=== PATIENT | female | born 1950 | race Caucasian/White ===

== ENCOUNTER → 2018-07-18 11:27 | Outpatient (CLI) | payer OTHER, SELFPAY ==
--- NOTE | 2018-07-18 11:40 | DI.CT.S_ITS ---
PROCEDURE: CT PEL WO CON INDICATIONS: Left medial thigh pain rule out hernia/prolapse TECHNIQUE: After the administration of oral contrast, 5 mm thick sections acquired from the iliac crests to the symphysis. 5 mm coronal and sagittal reformats were then performed. For radiation dose reduction, the following was used: automated exposure control, adjustment of mA and/or kV according to patient size. COMPARISON: [facility], , PELVIS WITHOUT CONTRAST, 12/16/2013, 14:08. FINDINGS: Image quality: Excellent. Peritoneum and bowel: Bowel loops demonstrate normal wall thickness and caliber. No free fluid or air. Genitourinary: Bladder wall thickness is normal. The uterus is surgically absent. There is a small left ovarian cyst measuring approximately 1 point for centimeters. Nodes and vessels: No iliac, pelvic, or inguinal adenopathy by size criteria. Iliac vessels demonstrate normal size. Bones: No suspicious bony lesions. Pelvic ring and hip joints appear intact. There is moderate degenerative disc disease within the lower lumbar spine. Miscellaneous: No inguinal hernias. There is a small amount of localized fluid in the left lateral internal fossa. Mild fat stranding extends inferiorly into the left inguinal region where there are few scattered subcentimeter lymph nodes which appear of normal size. No definite femoral hernia. There is apparent prolapse of the rectum and vagina approximately 4 cm inferior to the pubococcygeal line. IMPRESSION: 1. No discrete inguinal or femoral hernia identified. 2. Prolapse of pelvic contents inferior to the pubococcygeal line. Further evaluation may be obtained with a dynamic MRI if clinically indicated. 3. Small amount of fluid and fat stranding within the left lateral inguinal fossa. The finding is nonspecific but new from the prior study and suggestive of an inflammatory or infectious process. Recommend clinical followup and attention on followup studies. Dictated by: Isma Ibarra M.D. on 07/18/2018 at 15:03 Approved by: Isma Ibarra M.D. on 07/18/2018 at 15:27
== END ==
PROVIDERS: PCP Family Medicine Geriatric Medicine; Visit Provider Specialist
DX: M79.652 Pain in left thigh (principal); N81.89 Other female genital prolapse; N83.202 Unspecified ovarian cyst, left side
CPT/HCPCS: 72192

== ENCOUNTER → 2019-07-16 15:26 | Outpatient (CLI) | payer MEDICARE, OTHER, SELFPAY ==
[2019-07-16 15:52] LABS: Bacteria Urine None Seen; RBC Urine None Seen (0-5/HPF)
[2019-07-16 16:27] LABS: Add Manual Diff / Slide Review NO; Basophils Absolute Auto 0 /uL (0-100); Basophils Percent Auto 0.8 % (0-2); Eosinophils Absolute Auto 100 /uL (0-450); Eosinophils Percent Auto 2.4 % (2-4); Hematocrit 37.8 % (36-46); Hemoglobin 13.3 g/dL (12.0-16.0); Lymphocytes Absolute Auto 1500 /uL (1100-4500); Lymphocytes Percent Auto 27.7 % (25-40); Mean Corpuscular HGB Conc 35.2 % (30-36); Mean Corpuscular Hemoglobin 34.2 PG (26-34); Mean Corpuscular Volume 97.1 fL (80-100); Monocytes Absolute Auto 400 /uL (0-900); Monocytes Percent Auto 8.4 % (3-14); Neutrophils Absolute Auto 3200 /uL (1500-7000); Neutrophils Percent Auto 60.7 % (50-75); Platelet Count 232 X10^3/uL (150-400); Red Blood Cell Count 3.89 X10^6/uL (4.0-5.2); Red Cell Distribution Width 13.1 % (11.6-14.8); White Blood Cell Count 5.3 X10^3/uL (4.5-11.0)
[2019-07-16 16:43] LABS: Blood Urea Nitrogen 16 mg/dL (7-17); Calcium 9.1 mg/dL (8.4-10.2); Carbon Dioxide 30 mmol/L (22-32); Chloride 102 mmol/L (98-107); Estimated Glomerular Filt Rate > 60.0 mL/min (>60); Glucose 115 mg/dL (80-110); HEMOLYSIS < 15 (0-50); Potassium 4.1 mmol/L (3.4-5.1); Sodium 138 mmol/L (137-145)
[2019-07-16 16:45] LABS: Appearance Urine UA CLEAR; Bilirubin Urine UA NEGATIVE (NEGATIVE); Color Urine UA YELLOW; Glucose Urine UA NEGATIVE (Negative); Hemoglobin A1C% w Est Avg Glu 5.2 % (4.0-6.0); Ketones Urine UA NEGATIVE (NEGATIVE); Leukocyte Esterase Urine UA NEGATIVE (NEGATIVE); Nitrite Urine UA NEGATIVE (Negative); Occult Blood Urine UA NEGATIVE (Negative); Protein Urine UA NEGATIVE (Negative); Urobilinogen Urine UA 0.2 E.U./dL (0.2)
[2019-07-16 16:51] LABS: Transferrin 217 mg/dL (206-381)
[2019-07-16 16:59] LABS: Culture Indicated Urine Cult Not Indicated; Squamous Epithelial Cell Urine 0-1 /HPF (0-5/HPF); WBC Urine 0-1/HPF (0-5/HPF)
== END ==
PROVIDERS: PCP Family Medicine; Referring Provider Orthopaedic Surgery; Visit Provider Orthopaedic Surgery
DX: Z01.818 Encounter for other preprocedural examination (principal); E61.1 Iron deficiency; N39.0 Urinary tract infection, site not specified; R73.9 Hyperglycemia, unspecified
CPT/HCPCS: 36415; 80048; 81001; 83036; 84466; 85025

== ENCOUNTER 2019-07-26 08:05 | Day surgery (SDC) | payer MEDICARE, OTHER, SELFPAY ==
[2019-07-23 09:48] VITALS: BMI 28.5
[2019-07-26] VITALS (21 sets, daily range): BP systolic 100–121; BP diastolic 61–78; PULSE 80–107; RESP 9–19; TEMP 35.8–37.4; O2SAT 91–100; BMI 28.3
--- NOTE | 2019-07-26 | DI.RAD.S_ITS ---
PROCEDURE: XR KNEE RT 1TO2V INDICATIONS: RIGHT TOTAL KNEE SURGERY TECHNIQUE: 2 view(s) of the knee acquired. COMPARISON: [facility], , KNEE 1-2 VIEWS LEFT, 06/13/2017, 12:48. FINDINGS: Bones: Patient is status post knee joint arthroplasty. Hardware components are in expected positions. Visualized bony structures are intact. Soft tissues: Overlying postoperative changes are noted. IMPRESSION: Right total knee arthroplasty, immediate postoperative examination. Normal alignment established. Dictated by: Gadiel Burton M.D. on 07/26/2019 at 13:51 Approved by: Gadiel Burton M.D. on 07/26/2019 at 13:52
[2019-07-26] MEDS: ACETAMINOPHEN 325 MG TABLET 975 MG PO (08:34)
[2019-07-26] MEDS: CELECOXIB 200 MG CAPSULE PO (08:34)
[2019-07-26] MEDS: PREGABALIN 75 MG CAPSULE PO (08:34)
[2019-07-26] MEDS: LACTATED RINGERS 1,000 ML 42 ML IV (09:01)
[2019-07-26] MEDS: CEFAZOLIN 2 GM/100 ML FROZ.PIGGY IV (10:25)
[2019-07-26] MEDS: TRANEXAMIC ACID 1,000 MG VIAL 1000 MG INJ ×2 (10:50→12:00)
--- NOTE | 2019-07-26 11:21 | SUR.OPER ---
Supine on padded OR bed. Pillow under head, arms secured on padded armboards <90 degree abduction. Safety belt across torso. Non-operative leg secured with tape over blanket over lower leg. Operative leg secured in DeMayo/Brent positioner. Foam padded brace at thigh of operative leg.
[2019-07-26] MEDS: BUPIVACAINE 0.25% W/ EPI 30 ML VIAL 60 ML INJ (11:24)
[2019-07-26] MEDS: BUPIVACAINE LIPOSOME 266 MG/20 ML VIAL INJ (11:24)
[2019-07-26] MEDS: MORPHINE 4 MG/ML INJ INJ (11:25)
--- NOTE | 2019-07-26 12:34 | PM.OP.1 ---
Operative Date/Time/Diagnoses Date of procedure: 07/26/19 Time of procedure: 12:10 Pre-op diagnosis: Right knee osteoarthritis Post-op diagnosis: same Procedure & Clinicians Procedure: Right total knee replacement Same procedure as scheduled: Yes Indications: The patient has had progressively worsening right knee pain with radiographic changes consistent with arthritis. Non-operative management has failed and the patient has requested total knee replacement. The risks, benefits and alternatives to surgery were discussed with the patient prior to proceeding. Risks discussed included, but were not limited to, failure to relieve pain, stiffness, infection, nerve damage, deep venous thrombosis, pulmonary embolism, stroke, coma, heart attack, permanent paralysis and , as well as the potential need for eventual revision of the prosthetic. Surgeon: David Vitale Harness Worker: Dung Haque Click Yes if Unassisted: No Anesthesia Type: General, Spinal and Local Operative Notes Findings: Tricompartmental osteoarthritis with bone exposed in all 3 compartments Closure Type: primary Specimen(s): none sent Prosthetic devices, grafts, tissues, transplants, or devices: Implants used in this procedure were manufactured by the [employer] and included the BCS II Journey total knee replacement with a size 6 right Oxinium femoral component, a size 4 non porous tibial tray with a 9 mm insert and a 29 mm oval Lani II patella. Applied: implant(s) Estimated Blood Loss (mL): 25 Blood products transfused: none Tourniquet time (min): 60 Procedure in detail: The patient was seen in the pre-operative area, where the patient identified the right knee as the operative site and this was marked with my initials. The patient received pre-operative antibiotics, and was taken to the operating room and placed on the operative table in the supine position. After satisfactory anesthesia, a timekeeping supervisor out was performed. The right leg was encircled with a tourniquet about the proximal thigh, and the leg was prepared from the toes to the tourniquet with ChloroPrep in the usual fashion and draped through sterile drapes. The leg was elevated and exsanguinated with Eschmark bandage and the tourniquet inflated to 250 mmHg pressure. The knee was approached through an approximately 18 cm incision centered over the patella and carried into the knee through a medial parapatellar arthrotomy. The anterior osteophytes and soft tissues were removed. The rotational landmarks of Humacao's line and the transepicondylar axis were marked on the femur with electrocautery, and intramedullary guide holes for the femur and tibia were created. The distal femoral cut was made in 6 degrees of valgus using the intramedullary guide at the primary cut setting. The proximal tibial cut was then made using the intramedullary guide, taking 9 mm of bone off the less involved side. The patient has Meyer's cyst decompressed while the tibia was subluxated forward. The extension gap was checked and the rotation of the femoral component confirmed with the gap balancing system. The anterior, posterior and chamfer cuts were then made. The posterior osteophytes and soft tissues were then removed. The posterior capsule was injected with part of a mixture of 60 ml 0.25% Marcaine mixed with 20 ml Exparel and 4 mg of morphine for post-operative pain control. The remainder of this mixture was injected into the capsule and subcutaneous tissues during cement curing. The tibia was prepared with the rotation set by an extra medullary guide. Trial tibial and femoral components were then placed and the intercondylar notch cut through the femoral trial. Range of motion was 0-135 degrees, with good stability throughout the range. The patella was then cut to accommodate the patellar prosthetic. There was no need for a lateral release. The trials were then removed, and the femoral hole plugged with a bone plug. The bone was prepared with pulsatile lavage, and dried with a sponge. Cement was applied and the final prosthetics placed. Excess cement was removed during and after cement curing. After confirming there was no extruded cement posteriorly, the final tibial insert was placed. The knee was copiously irrigated and the tourniquet deflated. Hemostasis was obtained. The capsule was closed with interrupted # 2 polyester suture. The subcutaneous layer was closed with 3-0 Vicryl, and the skin with a running 3-0 V-Lock suture and SteriStrips. An Aquacel Ag dressing was applied and the patient was taken to recovery having tolerated the procedure well. Complications: none Post-operative Condition: stable Disposition: PACU Plan for aftercare: The patient will be maintained on a standard total knee replacement protocol with weight bearing as tolerated. The patient will receive aspirin and sequential compression devices for DVT prophylaxis. The patient will be discharged home when safe for the home environment.
--- NOTE | 2019-07-26 13:18 | SUR.PHASEI ---
Patient A/O. Denies pain/nausea. BARCENAS's x 4.
[2019-07-26] MEDS: OXYCODONE/ACETAMINOPHEN 5/325 TABLET 1 TAB PO (13:22)
[2019-07-26] MEDS: LACTATED RINGERS 1,000 ML 100 ML IV ×2 (14:12→22:50)
--- NOTE | 2019-07-26 14:35 | PC.ADMIT ---
[email or web address] Admission Note: The patient,Henry Nunn,68 y/o, was given written information regarding hospital policies, unit procedures and contact persons. Patient's smoking status: Never smoker. Vital Signs - 8 hr 07/26/19 08:49 07/26/19 12:26 07/26/19 12:30 Temperature 98.4 F 99.4 F Pulse Rate 80 104 H 101 H Respiratory Rate 18 9 L 9 L Blood Pressure 121/77 120/65 110/62 Pulse Oximetry 96 92 91 07/26/19 12:35 07/26/19 12:40 07/26/19 12:45 Temperature 98.4 F Pulse Rate 96 H 94 H 96 H Respiratory Rate 9 L 9 L 11 L Blood Pressure 110/61 113/67 118/71 Pulse Oximetry 98 98 98 07/26/19 12:50 07/26/19 13:05 07/26/19 13:10 Temperature Pulse Rate 95 H 93 H 93 H Respiratory Rate 19 16 12 Blood Pressure 108/69 115/71 114/66 Pulse Oximetry 98 100 95 07/26/19 13:23 Temperature Pulse Rate 92 H Respiratory Rate 12 Blood Pressure 118/64 Pulse Oximetry 100
[2019-07-26] MEDS: ACETAMINOPHEN 325 MG TABLET 650 MG PO ×2 (14:46→21:23)
[2019-07-26] MEDS: OXYCODONE IR 10 MG TABLET PO ×2 (18:10→22:50)
[2019-07-26] MEDS: ASPIRIN EC 81 MG TABLET PO (21:24)
[2019-07-26] MEDS: GABAPENTIN 300 MG CAPSULE PO (21:24)
[2019-07-26] MEDS: DOCUSATE 100 MG CAPSULE PO (21:24)
[2019-07-26] MEDS: NAPROXEN 250 MG TABLET 500 MG PO (21:24)
[2019-07-26] MEDS: DULOXETINE 30 MG CAPSULE PO (21:27)
--- NOTE | 2019-07-26 22:07 | PC.NURSE ---
Assumed care of pt at 1500. Pt resting in bed during bedside hand-off. CMS+, Drsg with Ciro wrap c/d/i. No voids since prior to surgery. Up to BSC with only small amt of urine each time. Bladder scanned with small amt retained. Enc po fluid intake, pt drinking as requested. Steady on feet with 2 PA, now 1 PA w/fww. O2 sats 100% 1L NC. titrated off O2, Pt noted to desat with sleep; 1L NC applied for sleep.
[2019-07-27] VITALS: BP 108/61; PULSE 77; RESP 16; TEMP 36.3; O2SAT 100
[2019-07-27] MEDS: OXYCODONE IR 10 MG TABLET PO ×3 (01:44→09:11)
[2019-07-27] MEDS: hydrOXYzine pamoate 25 MG CAPSULE PO (03:14)
[2019-07-27 04:00] VITALS: BP 105/72; PULSE 81; RESP 18; TEMP 36.6; O2SAT 97
--- NOTE | 2019-07-27 05:48 | PC.NURSE ---
Pt is doing well. Complains of 8/10 pain mostly relieved with Oxy 10mg and a vistaril. Ambulating to bathroom well with FWW and SBA LR@100mL/hr Placed on room air this morning, continuous pulse ox on. B/L SCDs on Became nauseous overnight for about 5min, no emesis. Refused zofran. ate some saltines
[2019-07-27 08:00] VITALS: BP 112/51; PULSE 88; RESP 17; TEMP 36.4; O2SAT 94
[2019-07-27] MEDS: GABAPENTIN 300 MG CAPSULE PO (08:22)
[2019-07-27] MEDS: ACETAMINOPHEN 325 MG TABLET 650 MG PO (08:22)
[2019-07-27] MEDS: ASPIRIN EC 81 MG TABLET PO (08:22)
[2019-07-27] MEDS: DOCUSATE 100 MG CAPSULE PO (08:22)
[2019-07-27] MEDS: NAPROXEN 250 MG TABLET 500 MG PO (08:22)
[2019-07-27 08:41] LABS: Hematocrit 32.4 % (36-46); Hemoglobin 11.6 g/dL (12.0-16.0)
[2019-07-27 09:11] VITALS: O2SAT 98
--- NOTE | 2019-07-27 09:11 | PM.DS.1 ---
History of Present Illness History of Present Illness Date Patient Seen: 07/27/19 Time Patient Seen: 09:11 Chief complaint: 19119 RT TKA *OPB* Narrative: History and physical are contained in the chart in a previously completed note. Please refer to that note for this information. Discharge Providers Provider Discharge Date: 07/27/19 Primary care physician: Scott Mao MD Consults: 07/26/19 13:54 Consult to Discharge Planning Routine Comment: Consult to Physical Therapy Evaluate & Treat Comment: Physician Instructions: postop TKA protocol 07/26/19 14:28 Consult to Pastoral Services Routine Comment: patient request Discharge provider: David Vitale MD Summary Hospital Course Discharge Diagnosis: 1. Right knee osteoarthritis 2. Mild post hemorrhagic anemia Hospital Course: The patient was admitted to the hospital and taken directly to the operating room on July 26, 2019 where she underwent a right total knee replacement for osteoarthritis. She tolerated this procedure well and had made several trips to the bathroom overnight without the assistance. On the morning of postoperative day 1 it is presumed she will be ready for discharge later today after seeing physical therapy. Status at Discharge Cognitive/behavioral status at discharge: oriented Functional status at discharge: uses cane/walker Overall status at discharge: patient is progressing back to baseline Time Spent with Patient Time spent: Less than 30 minutes Exam Vital Signs (past 8 hours): - 07/27/19 04:00 07/27/19 08:00 Temperature 97.9 F 97.5 F L Pulse Rate 81 88 Respiratory Rate 18 17 Blood Pressure 105/72 112/51 L Pulse Oximetry 97 94 Oxygen Delivery Method Nasal Cannula Oxygen Flow Rate 0 Narrative Exam Narrative: Right knee wound is dressed with no drainage on the bandage. Calf is soft. Light touch and motion are intact in the right lower extremity. Objective Labs Result Diagrams: 07/27/19 08:34 Labs: Laboratory Results - last 24 hr 07/27/19 08:34 Hgb 11.6 L Hct 32.4 L Discharge Plan Discharge Plan Patient Disposition: Home Discharge Med Rec/Prescriptions Prescriptions: New acetaminophen 325 mg Tablet 650 mg PO TID 30 Days Qty: 180 RF: 0 aspirin 81 mg Tablet,Delayed Release (Dr/Ec) 81 mg PO BID 42 Days Qty: 84 RF: 0 oxycodone 5 mg Tablet 5 mg PO Q4H PRN (Reason: Pain, Moderate (4-6)) Qty: 40 RF: 0 hydroxyzine pamoate 25 mg Capsule 25 mg PO Q6HR PRN (Reason: Nausea) Qty: 40 RF: 0 Continued naproxen 500 MG tablet 500 mg PO BID Qty: 0 RF: 0 duloxetine 30 MG capsule,delayed release(DR/EC) 30 mg PO SEEINSTR Qty: 0 RF: 0 gabapentin 300 mg capsule 300 mg PO BID RF: 0 oxycodone-acetaminophen 5-325 mg Tablet 1 tab PO Q4-6H PRN (Reason: Pain) RF: 0 Follow up/Referrals: David Vitale MD [Physician] - 2 Weeks Discharge Orders: Discharge (Order); Ordered 07/27/19 Ordered By: David Vitale Provider Discharge Instructions Diet: Diet as Tolerated and Regular Activity: You may bear weight as tolerated on your right leg. Cold/Heat Therapy: You may apply ice to the right knee for 15 minutes of every hour as needed for pain control. Skin/Wound/Dressing Care Report to your healthcare provider any signs of infection, such as:: chills, fever, night sweats, increased pain, unusual drainage and unusual redness Dressing: You may remove your Ciro wrap 3 days after surgery. You may shower normally with the deeper dressing in place. Leave the deeper dressing on until your follow-up. If the central strip of the deep dressing becomes saturated with either water or blood, please call the office to have it changed. Visit Report/Discharge Packet Instructions: DI for Knee Replacement Stand Alone Forms: Surgery Discharge Discharge Data Primary Care Provider: Scott Mao Attending Provider: David Vitale
--- NOTE | 2019-07-27 09:15 | PT.IIE ---
Current Diagnoses Unilateral primary osteoarthritis, right knee (07/26/19) Surgery Performed Operation Date: 07/26/19 10:00 Actual Procedures p Total Knee Arthroplasty(Right) - David Vitale MD Surgical History (Last Updated 07/23/19 @ 09:58 by Aixa Andrews RN) Anesthesia (Resolved) H/O bladder repair surgery (Resolved ~1982) H/O total vaginal hysterectomy (Acute ~1983) History of bilateral tubal ligation (Acute) History of left knee replacement (Resolved 06/19/17) History of nasal surgery (Resolved ~1996) History of shoulder surgery (Resolved ~2005) Hx of appendectomy (Acute) Hx of cholecystectomy (Resolved ~1995) Hx of hernia repair (Resolved ~2009) Hx of hysterectomy (Resolved) Hx of repair of right rotator cuff (Acute) Hx of sinus surgery (Acute) Hx of tonsillectomy (Resolved ~1959) S/P total knee arthroplasty (Resolved) Medical History (Last Updated 07/23/19 @ 09:58 by Aixa Andrews RN) Acne (Inactive) Active Meniere's disease (Chronic) Anemia (Acute) Arthritis (Chronic) Fecal incontinence (Chronic) Fibromyalgia (Chronic ~1995) Hearing loss (Chronic ~1968) Heavy menstrual period (Resolved) Hernia (Chronic) History of urinary incontinence (Chronic) Measles (Resolved ~1955) Meniere's disease (Chronic ~1968) Mumps (Resolved ~1960) Osteoarthritis (Chronic ~1974) Restless leg syndrome (Inactive ~1995) RLS (restless legs syndrome) (Acute) Spinal stenosis (Acute) Spondylosis (Acute ~2013) Tinnitus (Chronic ~1968) Vertigo (Chronic ~1968) Physical Therapy Inpatient Evaluation/Re-Eval M1 PT/OT-IP Prior Functional Status Start: 07/27/19 11:43 Freq: NEEDED Status: Active Protocol: Document 07/27/19 09:15 AB (Rec: 07/27/19 12:15 AB [id number]) Medical Review Prior Functional Status Medical History Reviewed Yes Communication able to make needs known Mobility and Gait pt stated that she is modified independent with all mobilities and ambulation without AD but uses 1 hiking pole for outdoor mobility Social History Household Members spouse Living Arrangements House Number of Floors (Floors) 3 or More Floors Number of Stairs To Enter/Railing? no steps to enter has 7 steps with bilateral rails +7 steps with R rail and L wall to get to 2nd level bedroom Home Environment High Toilet,Walk in Shower Home Equipment Front Wheel Walker,Shower Seat without Backrest,Hand Held Shower Employment Status Retired M2 PT-IP Current Condition Start: 07/27/19 11:43 Freq: NEEDED Status: Active Protocol: Document 07/27/19 09:15 AB (Rec: 07/27/19 12:15 AB [id number]) Physical Therapy Current Condition Current Condition Evaluation Date 07/27/19 Treatment Diagnosis s/p R TKA; difficulty in walking Onset Date 07/26/19 Weight Bearing Status Weight Bearing Status Weight Bear as Tolerated Allowed Weight Bearing Amount (enter % WBAT RLE or #) (%) M3 PT-IP Subjective Start: 07/27/19 11:43 Freq: NEEDED Status: Active Protocol: Document 07/27/19 09:15 AB (Rec: 07/27/19 12:15 AB [id number]) Subjective Physical Therapy Visit Type Type Initial Evaluation Visit Start Time 09:15 Visit Stop Time 11:47 Total Visit Minutes 23 Notes pt seen for split visits: 915 to 926 and 1135 to 1147. checked on pt and PLOF and home set up info acquired but then pt does not want to move and get out of bed and wants to rest for 1 hours. checked on pt again and completed PT eval. Number of FLOOR INSTALLER Visits 0 Therapy Pain Assessment Pain When Pain Assessed At Rest Pain Present Pain Present Pain Reported Location Right Knee Intensity 9 Scale Used Numeric (1 - 10) Pain Management Techniques Timing of Activity with Medications M4 PT-IP Mobility and Gait Start: 07/27/19 11:43 Freq: NEEDED Status: Active Protocol: Document 07/27/19 09:15 AB (Rec: 07/27/19 12:15 AB [id number]) PT-Bed Mobility Assessment Supine to Sit Supine to Sit Independent Sit to Supine Sit to Supine Independent PT-Transfer Assessment Sit to and From Stand Sit to and from Stand Standby Assistance Equipment Transfer Assistive Device Gait Belt,Front Wheeled Walker Orthotic/Prosthetic Devices or Brace: No Comments Mobility Comments pt completed supine to sit SBA, sit to stand SBA and ambulated towards the stairs using FWW SBA. completed stairs and ambulated back to her room using FWW. pt has a FWW but is broken but usable for now. pt stated that they can get one easily where they live. left pt in her room. informed nurse that pt is waiting for d/c. Gait Assessment Gait Gait Assistance Required: Standby Assistance Distance (Feet) 250 Able to Maintain Weight Bearing Status Yes During Gait Assistive Devices Assistive Device Gait Belt,Front Wheeled Walker Orthotic/Prosthetic Devices or Brace: No Gait Deviations General Gait Pattern Antalgic,Decreased Stride Length,Decreased Feet Clearance Factors Limiting Gait Function Factors Limiting Gait Function Decreased Activity Tolerance, Decreased Strength,Pain,Poor Balance,Poor Safety Awareness Comments Gait Comments ambulated 250 ft x 2 using fWW SBA. Stair Climbing Assessment Evaluation Level of Assist On Stairs Standby Assistance Devices Stair Climbing Assistive Devices Left Railing,Right Railing Technique/Endurance Stair Climbing Direction Ascend and Descend Stair Climbing Technique Step to Step Number of Steps Climbed 3 Query Text: Stair Climbing Set # Repetitions (reps) 2 Comments Stair Climbing Comments completed up/down steps using bilateral rails SBA and also completed using just R rail and L side wall SBA. PT-Balance Assessment Sitting Balance and Reactions Static Sitting Balance Ability Normal Dynamic Sitting Balance Ability Normal Standing Balance and Reactions Static Standing Balance Ability Good Dynamic Standing Balance Ability Fair Device Used FWW M5 PT-IP Objective Assessments Start: 07/27/19 11:43 Freq: NEEDED Status: Active Protocol: Document 07/27/19 09:15 AB (Rec: 07/27/19 12:15 AB [id number]) Orientation Orientation/Cognition Level of Alertness Alert Safety Awareness Decreased Safety Awareness Memory Description No Deficits Noted Gross Range of Motion Lower Extremity ROM Assessment Right Impaired Impairments R knee tightness with ROM Strength Lower Extremity Strength Assessment Right Impaired Hip 4-/5 Knee 3+/5 Coordination Assessment Gross Coordination Gross Coordination WNL Sensation Assessment Sensation Gross Sensation WNL Muscle Tone Muscle Tone WNL Yes M6 PT-IP Treatment Start: 07/27/19 11:43 Freq: NEEDED Status: Active Protocol: Document 07/27/19 09:15 AB (Rec: 07/27/19 12:15 AB [id number]) Physical Therapy Treatment Education Education Provided Precautions,Weight Bearing Status,Post-Op Packet,Safety Other Treatments Other Treatment Performed gave pt post-op packet but pt did not want it; stated that she still has her old one and her spouse also has one. M7 PT-IP Assessment and Plan Start: 07/27/19 11:43 Freq: NEEDED Status: Active Protocol: Document 07/27/19 09:15 AB (Rec: 07/27/19 12:15 AB [id number]) PT Summary Assessment and Plan Potential Rehabilitation Potential Good Status of Condition at Evaluation Stable Summary Impairments Pain,ROM,Strength,Balance, Coordination,Bed Mobility, Transfers,Gait,Activity Tolerance Assessment Summary pt requiring SBA with mobility and plans to go home today with spouse to assist her. pt stated that she is scheduled for outpt PT. Goals Transfer Goal Independent,Front Wheeled Walker Gait Goal Independent,Front Wheel Walker Gait Distance 300 Other Goals up/down 13 steps R rail +L wall mod I Days to Meet Goals 3 Frequency of Treatment Frequency Of Treatment Twice a Day Treatment Plan Physical Therapy Treatment Plan Bed Mobility Training,Transfer Training,Gait Training, Therapeutic Exercise,Balance Retraining,Post Op Education, Discharge Planning,Hot or Cold Pack,Neuromuscular Re-ed, Coordination Retraining,Manual Therapy Other Recommendations and Next Treatment ambulation, stair climbing Focus Recommendations To Nursing Amount of Assist Needed Standby Assistance Discharge Recommendations PT Discharge Recommendations Home with Assistance, Outpatient PT Transportation Needs at Discharge Private Vehicle
--- NOTE | 2019-07-27 09:32 | PC.NURSE ---
Patient states that her pain to knee is 9/10. Given 10mg of po Oxycodone and helpful. Incision to R. knee is cdi with aquacel and otoniel wrap intact. Patient needs to be reminded to use her I.S. Patient is on RA and her sats are 95, at one point when SURGERY ATTENDANT got patient up, she states that her sat dropped to 83%. Patients has cold extremities, so this may not be accurate. o sob noted, aware, and states that he is not too concerned as she does not have any lung issues. Upon ausculation breath sounds wnl and clear. Patient is resting now and will be working with physical therapy in about an hour. Her will be here to get her around 1400 or earlier to machine operator picker prescriptions for her pain medication. She will catch the [address] to [facility].
--- NOTE | 2019-07-27 11:25 | CM.IDA ---
Initial DCP Assessment Note: Pt is a 68 yo female, resident of [place]. Patient is now POD#1 from Rt knee surgery w/ Dr Vitale PCP: Scott Mao Payer: YELENA/miranda Reviewed chart, pt discussed in multidisciplinary rounds this morning. Dr Vitale has already initiated DC order this morning, pending progress w/therapy team. Met w/patient, explained role. [place] w/her supportive spouse, who is a retired physician. Patient feels confident about her return home and has had many surgeries so feels she knows what to expect once home and feels prepared w/DME. No needs expected from DC planning team although will remain available in case this changes today. DEIDRE Dougherty
== END 2019-07-27 12:45 | disposition home or self-care (01) ==
LOC: OR 08:07 → AC 13:01
PROVIDERS: PCP Family Medicine; Referring Provider Orthopaedic Surgery; Visit Provider Orthopaedic Surgery
PROC: 0SRC0JZ Replacement of Right Knee Joint with Synthetic Substitute, Open Approach (ICD-10-PCS; CPT 27447; principal; 2019-07-26 10:00)
DX: M17.11 Unilateral primary osteoarthritis, right knee (principal); M79.7 Fibromyalgia
CPT/HCPCS: 27447; 36415; 73560; 85014; 85018; 94762; 97161; C1776; C9290; J0690; J1100; J2250; J2270; J2274; J2405; J2704; J3010

== ENCOUNTER 2019-08-02 10:08 | Day surgery (SDC) | payer MEDICARE, OTHER, SELFPAY ==
[2019-07-26 14:17] VITALS: BMI 28.3
[2019-08-02] VITALS (13 sets, daily range): BP systolic 119–159; BP diastolic 59–89; PULSE 78–96; RESP 9–20; TEMP 36.3–37.1; O2SAT 92–100; BMI 28.0
--- NOTE | 2019-08-02 12:07 | P.HP_ITS ---
History of Present Illness History of Present Illness Date Patient Seen: 08/02/19 Time Patient Seen: 09:45 Date of Onset of Symptoms: 07/28/19 Chief complaint: wash out Narrative: This is an interim history and physical. The patient was seen in the hospital for total joint replacement with a right total knee 1 week ago. She initially did reasonably well and was discharged from the hospital 1 day after surgery. Her noted drainage on her bandage on postoperative day 2 and they were examined in the office postoperative day 3. A compression dressing was applied and she was told to rest the leg and decrease her aspirin use. Her drainage has decreased but not ceased. She returns to the hospital today for exploratory incision and drainage potentially with irrigation of the joint and change of the liner. There have been no additional findings adding to her past medical history from her prior history and physical. She denies fevers and chills. Patient History Medical History Acne (Inactive) Active Meniere's disease (Chronic) Anemia (Acute) Arthritis (Chronic) Fecal incontinence (Chronic) Fibromyalgia (Chronic ~1995) Hearing loss (Chronic ~1968) Heavy menstrual period (Resolved) Hernia (Chronic) History of urinary incontinence (Chronic) Measles (Resolved ~1955) Meniere's disease (Chronic ~1968) Mumps (Resolved ~1960) Osteoarthritis (Chronic ~1974) Restless leg syndrome (Inactive ~1995) RLS (restless legs syndrome) (Acute) Spinal stenosis (Acute) Spondylosis (Acute ~2013) Tinnitus (Chronic ~1968) Vertigo (Chronic ~1968) Surgical History Anesthesia (Resolved) H/O bladder repair surgery (Resolved ~1982) H/O total vaginal hysterectomy (Acute ~1983) History of bilateral tubal ligation (Acute) History of left knee replacement (Resolved 06/19/17) History of nasal surgery (Resolved ~1996) History of shoulder surgery (Resolved ~2005) Hx of appendectomy (Acute) Hx of cholecystectomy (Resolved ~1995) Hx of hernia repair (Resolved ~2009) Hx of hysterectomy (Resolved) Hx of repair of right rotator cuff (Acute) Hx of sinus surgery (Acute) Hx of tonsillectomy (Resolved ~1959) S/P total knee arthroplasty (Resolved) Family & Social History Family History Mother Hypertension Gallstones Diabetes mellitus Father Diabetes mellitus Social History: household members spouse Tobacco & Substance use: Smoking Status Never smoker alcohol intake current alcohol intake frequency 0-2 drinks per day Substance Use Type does not use Meds Home Medications and Allergies Home Medications Medication Instructions Recorded Confirmed Type duloxetine 30 mg PO SEEINSTR #0 06/05/17 07/26/19 History naproxen 500 mg PO BID #0 06/05/17 07/26/19 History gabapentin 300 mg capsule 300 mg PO BID 07/11/18 07/26/19 History oxycodone-acetaminophen 1 tab PO Q4-6H PRN 07/23/19 07/26/19 History acetaminophen 650 mg PO TID 30 Days #180 tab 07/27/19 Rx aspirin 81 mg PO BID 42 Days #84 tab 07/27/19 Rx hydroxyzine pamoate 25 mg PO Q6HR PRN #40 cap 07/27/19 Rx oxycodone 5 mg PO Q4H PRN #40 tab 07/27/19 Rx Allergies Allergy/AdvReac Type Severity Reaction Status Date / Time No Known Drug Allergies Allergy Verified 07/26/19 08:32 Review of Systems Review of Systems ROS: Yes All systems reviewed with the patient and are negative except as otherwise documented Exam Narrative Exam Narrative: The patient is normocephalic atraumatic. Chest is clear to a uscultation. Cardiac exam is regular rate and rhythm. Abdomen is soft nontender with normal bowel bowel sounds no palpable masses. Extremity examination is notable for the right lower extremity. There is some bruising around the knee incision. There is no erythema in the skin. There is a small amount of ongoing sanguinous drainage from the inferior 3rd of the total knee incision. Assessment & Plan Assessment & Plan narrative: The patient has persistent drainage 1 week after total joint replacement. Plan we will open the wound and inspect to make sure this does not go to the joint. We will irrigate and then reclosed. If it does in fact go to the knee itself that joint will also be washed out and this will include an exchange of polyethylene. Patient has agreed to this after discussion the risks benefits and alternatives. Risks discussed included were not limited to failure to relieve the infection if present, stiffness, infection, nerve damage, deep venous thrombosis, pulmonary embolism, stroke, heart attack, permanent paralysis and . COVID-19 COVID-19 status: Negative Result date/Date tested (Pos, Neg/Pending): 08/02/19
[2019-08-02] MEDS: LACTATED RINGERS 1,000 ML 42 ML IV (13:22)
[2019-08-02 13:59] LABS: COVID19 -Nasal RAPID Negative (Negative)
--- NOTE | 2019-08-02 15:29 | SUR.OPER ---
Supine on padded OR bed, head on pillow, arms secured on padded arm boards at <90 degrees abduction, legs uncrossed, safety belt at abdomen, tape over blanket over lower nonoperative leg.
[2019-08-02] MEDS: GABAPENTIN 300 MG CAPSULE PO (15:33)
[2019-08-02] MEDS: ACETAMINOPHEN 325 MG TABLET 975 MG PO (15:33)
[2019-08-02] MEDS: SCOPOLAMINE 1 PATCH TOP (15:37)
[2019-08-02] MEDS: CEFAZOLIN 2 GM/100 ML FROZ.PIGGY IV (16:10)
--- NOTE | 2019-08-02 16:38 | PM.OP.1 ---
Operative Date/Time/Diagnoses Date of procedure: 08/02/19 Time of procedure: 16:38 Pre-op diagnosis: Persistent drainage after right total knee replacement Post-op diagnosis: same Procedure & Clinicians Procedure: Incision and drainage of subcutaneous hematoma, right knee Same procedure as scheduled: Yes Indications: The patient is a 68-year-old woman who 1 week ago underwent a total knee replacement. Unfortunately she has had ongoing sanguinous drainage from the lower edge of her incision since surgery. This has been slowing down but has not completely stopped. After discussion of the risks benefits and alternatives we have elected to return to the operating room for drainage of the hematoma and potentially arthrotomy and washout with liner exchange. The risks benefits and alternatives were discussed with her as documented in my interim history and physical. Surgeon: David Vitale Click Yes if Unassisted: Yes Anesthesia Type: General Operative Notes Findings: Superficial hematoma with no evidence of extension within the joint closure. Closure Type: primary Specimen(s): other (Swab cultures of the hematoma were sent.) Prosthetic devices, grafts, tissues, transplants, or devices: None Estimated Blood Loss (mL): 50 Blood products transfused: none Tourniquet time (min): 0 Procedure in detail: The patient was seen in the preoperative area where she identified her right knee as the operative site. The incision was used as the anna for identifying the surgical site. The patient did not receive preoperative antibiotics. She was taken to the operating room and placed on the operating room table in the supine position where she underwent a general anesthetic. Following the onset of satisfactory general anesthesia, her dressing was removed. A tourniquet was placed around her proximal right thigh although it was never inflated. The pre-existing incision was reopened using a scalpel. There was a large subcutaneous hematoma which was cultured with swabs and then evacuated with suction. At this point antibiotics were started IV with 2 g of Ancef. I carefully explored the closure of the joint capsule. There was no evidence of dehiscence. The subcutaneous hematoma was washed with 3 L of normal saline with pulsatile lavage. Hemostasis was then attained with electrocautery. This subcutaneous tissues were closed with interrupted 3 O Vicryl, the skin was closed with hamzah and Dermabond. An Aquacel Ag dressing was applied, followed by an Ciro wrap from the ankle to the upper thigh.. The patient was then taken to recovery having tolerated the procedure well. Complications: none Post-operative Condition: stable Disposition: PACU Plan for aftercare: The patient will be discharged home today. She will be given a prescription for Keflex 500 mg q.i.d. for 1 week. We will follow the cultures for their results.
[2019-08-02] MEDS: HYDROMORPHONE 2 MG INJ IV (16:46)
[2019-08-02] MEDS: fentaNYL 100 MCG/2 ML INJ IV ×2 (17:11→17:27)
[2019-08-02] MEDS: cephALEXin 250 MG CAPSULE 500 MG PO (17:12)
[2019-08-02] MEDS: hydrOXYzine pamoate 25 MG CAPSULE PO (17:12)
[2019-08-02] MEDS: OXYCODONE IR 5 MG TABLET PO (17:12)
--- NOTE | 2019-08-02 18:22 | SUR.PHASEII ---
To OPD, awake & oriented, tolerating PO well, waiting for spouse to return. IV dc'd, ambulated to the bathroom; stable on feet; voided. Clothing and personal bag returned to patient. States that she is tolerating the pain level well.
--- NOTE | 2019-08-02 18:44 | SUR.PHASEII ---
1835 Stable, Pt ambulating well, Medications/times reviewed with spouse. Pleasant and appreciative.
== END 2019-08-02 18:38 | disposition home or self-care (01) ==
PROVIDERS: PCP Family Medicine; Referring Provider Orthopaedic Surgery; Visit Provider Orthopaedic Surgery
PROC: (CPT 10140; principal; 2019-08-02 16:15)
DX: M96.840 Postprocedural hematoma of a musculoskeletal structure following a musculoskeletal system procedure (principal); Z96.651 Presence of right artificial knee joint; M79.7 Fibromyalgia; Z11.59 Encounter for screening for other viral diseases
CPT/HCPCS: 10140; 87070; 87075; 87205; 87635; J0690; J1100; J1170; J2405; J2704; J3010

== ENCOUNTER 2019-08-19 12:51 | Inpatient (IN) | payer MEDICARE, OTHER, SELFPAY ==
[2019-07-26 14:17] VITALS: BMI 28.3
[2019-08-19] VITALS (19 sets, daily range): BP systolic 98–146; BP diastolic 58–102; PULSE 70–91; RESP 7–19; TEMP 36.1–37.1; O2SAT 92–99; BMI 28.2
[2019-08-19] MEDS: ACETAMINOPHEN 325 MG TABLET 975 MG PO (14:54)
[2019-08-19] MEDS: GABAPENTIN 300 MG CAPSULE PO ×2 (14:54→22:13)
[2019-08-19] MEDS: PREGABALIN 75 MG CAPSULE PO (14:54)
[2019-08-19 15:13] LABS: COVID19 -Nasal RAPID Negative (Negative)
--- NOTE | 2019-08-19 15:15 | PC.NURSE ---
Day shift note: 1400: Patient admitted to room 219 as a direct admission from Dr. BRIGGS office due to increase drainage to right knee. I & D scheduled for this evening. Patient NPO since 1035. IV site placed. Voided 200 ml. Recent fall at home and baseline use of cane, high risk precautions initiated, call light within reach. COVID test performed, neg. Dressing to right knee, was changed during office visit, CDI. Mild edematous and tender to right knee, CMS intact. David at bedside providing supportive care.
--- NOTE | 2019-08-19 16:10 | PM.HP.1 ---
History of Present Illness History of Present Illness Date Patient Seen: 08/19/19 Time Patient Seen: 16:11 Date of Onset of Symptoms: 08/16/19 Chief complaint: DIRECT ADMIT TO IP Narrative: The patient is a 68-year-old woman who underwent a right total knee replacement on July 26, 2019. Postoperatively she had ongoing sanguinous drainage and eventually was returned to the operating room on August 02, 2019 for an incision and drainage of a subcutaneous hematoma. Cultures from this procedure returned negative. There was no evidence of continuity with the joint. She initially did well although she did have some minor continued drainage after this procedure, which continued to be sanguinous. Late on night of last week and into Monday the character of the drainage changed to purulent drainage. She was seen on Monday at her primary care office where they started her on Keflex and took a swab culture of the skin. To date this culture is negative. She contacted my office today and was encouraged to come in. She is readmitted for incision and drainage of the right knee with polyethylene exchange. In addition she will be given a PICC line and 6 weeks of IV antibiotics. Patient History Medical History Acne (Inactive) Active Meniere's disease (Chronic) Acute bilateral low back pain with bilateral sciatica (Acute) Anemia (Acute) Arthritis (Chronic) Fecal incontinence (Chronic) Fibromyalgia (Chronic ~1995) Hearing loss (Chronic ~1968) Heavy menstrual period (Resolved) Hernia (Chronic) History of urinary incontinence (Chronic) Measles (Resolved ~1955) Meniere's disease (Chronic ~1968) Mumps (Resolved ~1960) Osteoarthritis (Chronic ~1974) Restless leg syndrome (Inactive ~1995) RLS (restless legs syndrome) (Acute) Spinal stenosis (Acute) Spondylosis (Acute ~2013) Tinnitus (Chronic ~1968) Vertigo (Chronic ~1968) Surgical History Anesthesia (Resolved) H/O bladder repair surgery (Resolved ~1982) H/O total vaginal hysterectomy (Acute ~1983) History of bilateral tubal ligation (Acute) History of left knee replacement (Resolved 06/19/17) History of nasal surgery (Resolved ~1996) History of shoulder surgery (Resolved ~2005) Hx of appendectomy (Acute) Hx of cholecystectomy (Resolved ~1995) Hx of hernia repair (Resolved ~2009) Hx of hysterectomy (Resolved) Hx of repair of right rotator cuff (Acute) Hx of sinus surgery (Acute) Hx of tonsillectomy (Resolved ~1959) S/P total knee arthroplasty (Resolved) Family & Social History Family History Mother Hypertension Gallstones Diabetes mellitus Father Diabetes mellitus Social History: household members spouse Prior Living Arrangements House Tobacco & Substance use: Smoking Status Never smoker alcohol intake current alcohol intake frequency 0-2 drinks per day Substance Use Type does not use Meds Home Medications and Allergies Home Medications Medication Instructions Recorded Confirmed Type duloxetine 30 mg PO SEEINSTR #0 06/05/17 08/02/19 History naproxen 500 mg PO BID #0 06/05/17 08/02/19 History gabapentin 300 mg capsule 300 mg PO BID 07/11/18 08/02/19 History aspirin 81 mg PO BID 42 Days #84 tab 07/27/19 08/02/19 Rx oxycodone 5 mg PO Q4H PRN #40 tab 07/27/19 08/02/19 Rx acetaminophen 500 mg PO BID PRN 08/19/19 08/19/19 History Allergies Allergy/AdvReac Type Severity Reaction Status Date / Time No Known Drug Allergies Allergy Verified 07/26/19 08:32 Review of Systems Review of Systems Narrative: She reports that she may have an abscessed tooth for which she is expecting an evaluation at the dentist's this coming Monday. She denies fevers and chills. Otherwise review of systems are completely negative except as documented. ROS: Yes All systems reviewed with the patient and are negative except as otherwise documented Exam Vital Signs (past 8 hours): - 08/19/19 13:55 08/19/19 15:50 Temperature 98.5 F 97.9 F Pulse Rate 79 87 Respiratory Rate 18 19 Blood Pressure 137/90 123/77 Pulse Oximetry 99 98 Oxygen Flow Rate 0 Narrative Exam Narrative: Normocephalic atraumatic. Chest clear to auscultation. Cardiac exam regular rate and rhythm. Abdomen soft nontender with normal down will bowel sounds no palpable masses. Right knee wound shows minimal erythema although there is ongoing yellowish drainage from the distal end of the incision consistent with early sinus tract formation. 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 She has been treated over the weekend with oral antibiotics which unfortunately may decrease the yield of cultures taken is surgery. At this point my plan is to try to salvage the prosthetic by doing an extensive I and D with a tibial plastic change. We will place drains in the knee and she will receive a PICC line and will be treated with vancomycin and oral rifampin initially with a switch to more specific antibiotics according to culture results. When culture results are available we will involve Infectious Disease at [facility] in decision making. I have discussed this with the patient and her in detail. The risks benefits and alternatives of surgery were discussed. I made it clear that the alternative available of treating her with oral antibiotics and trying to watch this would almost certainly lead to eventual need for explantation of her prosthetic. Risks discussed included but were not limited to: Possible failure to cure the infection stiffness, nerve damage, deep venous thrombosis, pulmonary embolism, stroke, permanent paralysis, myocardial infarction and . COVID-19 COVID-19 status: Negative Result date/Date tested (Pos, Neg/Pending): 08/19/19 Time Spent With Patient Time with patient: 25 - 35 minutes
[2019-08-19] MEDS: LACTATED RINGERS 1,000 ML 42 ML IV (18:17)
[2019-08-19] MEDS: VANCOMYCIN 1,000 MG/200 ML PIGGYBACK 200 MG IV (19:59)
[2019-08-19] MEDS: TRANEXAMIC ACID 1,000 MG VIAL 2000 MG INJ (20:16)
--- NOTE | 2019-08-19 20:53 | P.OP_ITS ---
Operative Date/Time/Diagnoses Date of procedure: 08/19/19 Time of procedure: 20:53 Pre-op diagnosis: Infected right total knee replacement Post-op diagnosis: same Procedure & Clinicians Procedure: Incision and drainage with polyethylene exchange, right total knee replacement Same procedure as scheduled: Yes Indications: The patient is a 68-year-old woman who has had drainage from her wound after a right total knee replacement. Recently this drainage changed in character from being sanguinous to being purulence. She is return to the ope rating room for repeat I and D and exchange of a polyethylene liner in an attempt to save the prosthetic. Risks benefits and alternatives have been discussed as documented in my history and physical note. Surgeon: David Vitale Click Yes if Unassisted: Yes Anesthesia Type: General Operative Notes Findings: Sinus tract extending to medial proximal tibial plateau. Closure Type: primary Specimen(s): other (Swab and tissue cultures were sent) Prosthetic devices, grafts, tissues, transplants, or devices: A size 3-4 9 mm Journey II BCS tibial insert was removed and replaced with the same size insert. Applied: drain(s) and implant(s) Estimated Blood Loss (mL): 200 Blood products transfused: none Tourniquet time (min): 27 Procedure in detail: The patient was taken to the operating room and placed on the operating room table in a supine position. She underwent a general anesthetic. Her dressing was removed. A tourniquet was placed about her proximal right thigh. A canvas cutter machine-out was performed. The right leg was prepared with ChloraPrep and draped through sterile drapes. The leg was elevated to exsanguinate it. The tourniquet was then inflated to 250 mm of mercury. The patient had not received preoperative antibiotics in an attempt to maximize the yield of cultures. The pre-existing scar was reopened with excision of the sinus tract distally. The sinus tract did track to the joint along the medial proximal tibia. There did not appear to be gross contamination of the joint however. Swab cultures were obtained both from the deep sinus tract and from the joint itself. Likewise tissue cultures were obtained from the anterior scar tissue in the joint and from the area at the base of the sinus tract. Vancomycin IV was then started. The wound was irrigated with 3 L of pulsatile lavage after removing all suture material evident and all necrotic appearing tissue. After this irrigation, dilute Betadine solution was placed in the knee and allowed to sit in the knee for 5 minutes. A 2nd 3 L bag of pulsatile lavage was then used. At this point the tourniquet was released. There were no pulsatile bleeders but there was extensive oozing from all joint surfaces. At this point we administered 1 g of tranexamic acid IV in an attempt to help with hemostasis, the Bovie cautery was also used extensively. A deep drain was placed. The wound was closed with [id number] #[id number] Ethibond in the capsular layer, interrupted 3 O Vicryl in the subcutaneous layer and hamzah for skin. A suction Sveta dressing was applied. The patient was allowed to awaken from anesthesia and transported to the recovery room in good condition having tolerated the procedure well. Complications: none Post-operative Condition: stable Disposition: PACU Plan for aftercare: The patient will be maintained on vancomycin and rifampin initially until cultures are returned. If necessary changes will be made in her antibiotics. She will be maintained in the hospital until appropriate antibiotic choices can be made based on cultures and sensitivity. A PICC line will be placed for 6 weeks of IV antibiotics. We will obtain an ESR and CRP tomorrow morning for baseline comparison. Due to the extensive oozing at all 3 of the surgeries to date on her right knee, no aspirin prophylaxis and no anti- inflammatories will be used for pain control postoperatively. Her DVT prophylaxis will be with mechanical measures only.
[2019-08-19] MEDS: fentaNYL 100 MCG/2 ML INJ IV (20:54)
[2019-08-19] MEDS: HYDROMORPHONE 2 MG INJ IV ×4 (20:56→21:20)
[2019-08-19] MEDS: fentaNYL 100 MCG/2 ML INJ 50 MCG IV (21:08)
--- NOTE | 2019-08-19 22:07 | SUR.PHASEI ---
Pt transferred to acute care floor in stable condition. pt alert and talking to RN during transport. bedside report given to PRINCESS Alvarado upon arrival to room. Transferred care of pt to PRINCESS Alvarado at that time.
[2019-08-19] MEDS: LACTATED RINGERS 1,000 ML 100 ML IV (22:12)
[2019-08-19] MEDS: ACETAMINOPHEN 325 MG TABLET 650 MG PO (22:12)
[2019-08-19] MEDS: DOCUSATE 100 MG CAPSULE PO (22:13)
[2019-08-19] MEDS: rifAMPin 300 MG CAPSULE PO (22:20)
[2019-08-19] MEDS: DULOXETINE 30 MG CAPSULE PO (22:21)
[2019-08-19] MEDS: HYDROMORPHONE 0.5 MG INJ IV (22:21)
--- NOTE | 2019-08-19 22:56 | PC.NURSE ---
Pt arrived on unit at approx 2210, sleepy but A and O x 4. VSS. Desats slightly so on 1 L NC for noc. C/o pain 08/06, given dilaudid IVP and APAP 650mg. Pt voided 400 mLs on BSC, 65 out of hemovac. PICCO green. PICCO has drainage which is marked and has not increased. HV had 65 mg out.
[2019-08-20] VITALS (7 sets, daily range): BP systolic 100–117; BP diastolic 63–73; PULSE 75–88; RESP 16–18; TEMP 36.1–37.2; O2SAT 96–99
[2019-08-20] MEDS: OXYCODONE IR 10 MG TABLET PO (00:21)
--- NOTE | 2019-08-20 04:07 | PC.NURSE ---
Addendum entered by Thais Webb R.N. 08/20/19 05:01: Oxygen now down to 0.5L/min with sat of 96% so will stop oxygen and continue to monitor with pulse ox to see if oxygen needed. Patient states pain is currently 4/10 so medicated with Oxycodone and ice applied. Original Note: Patient seen and assessed at 0038. Is alert and oriented. Breath sounds CTA; oxygen at 2L/min per NC with sat of 98%. HRR. Denies nausea. BT present but denies flatus. [place] been [place] [facility] [place]; denies dysuria. SWETA dressing to right knee with sanguinous drainage within previously drawn markings; hemovac is intact and compressed. Right knee is swollen. CMS is intact. Complained of 8/10 pain and was medicated with Oxycodone. Wearing bilateral calf SCD's. Able to move self in bed and when up was assisted by 1 and using walker. Fall risk score is high (reports fall within past 3 months) and bed alarm is activated.
[2019-08-20] MEDS: OXYCODONE IR 5 MG TABLET PO ×3 (04:59→19:15)
[2019-08-20 05:25] LABS: Hematocrit 29.5 % (36-46); Hemoglobin 10.3 g/dL (12.0-16.0)
[2019-08-20 05:32] LABS: BUN Creatinine Ratio 18.5 (6-22); Blood Urea Nitrogen 12 mg/dL (7-17); Calcium 8.5 mg/dL (8.4-10.2); Carbon Dioxide 26 mmol/L (22-32); Chloride 101 mmol/L (98-107); Estimated Glomerular Filt Rate > 60.0 mL/min (>60); Glucose 161 mg/dL (80-110); HEMOLYSIS < 15 (0-50); Sodium 133 mmol/L (137-145)
[2019-08-20 05:45] LABS: Erythrocyte Sedimentation Rate 38 MM/HR (0-20)
[2019-08-20 05:48] LABS: C-Reactive Protein Quant 0.6 mg/dL (<1.0)
--- NOTE | 2019-08-20 07:45 | PM.PNPO.1 ---
Subjective Subjective Date Patient Seen: 08/20/19 Time Patient Seen: 07:46 Interval history: The patient has questions regarding her surgery but no specific complaints this morning. Exam Vital Signs (past 8 hours): - 08/20/19 00:20 08/20/19 04:57 Temperature 98.1 F 97.8 F Pulse Rate 86 88 Respiratory Rate 18 16 Blood Pressure 105/63 100/64 Pulse Oximetry 98 96 Oxygen Delivery Method Nasal Cannula Oxygen Flow Rate 0 Narrative Exam Narrative: Right knee wound is dressed with moderate drainage on the negative pressure bandage. There is no surrounding erythema. Drain output has been 70 mL. Calf is soft. Light touch and motion are intact. Objective Labs Result Diagrams: 08/20/19 05:05 08/20/19 05:05 Labs: Laboratory Results - last 24 hr 08/19/19 08/20/19 08/20/19 13:53 05:05 05:05 Hgb 10.3 L Hct 29.5 L ESR Sodium 133 L Potassium 5.0 Chloride 101 Carbon Dioxide 26 BUN 12 Creatinine 0.65 Estimated GFR > 60.0 BUN/Creatinine Ratio 18.5 Glucose 161 H Calcium 8.5 C-Reactive Protein COVID-19 PCR Negative 08/20/19 08/20/19 05:05 05:05 Hgb Hct ESR 38 H Sodium Potassium Chloride Carbon Dioxide BUN Creatinine Estimated GFR BUN/Creatinine Ratio Glucose Calcium C-Reactive Protein 0.6 COVID-19 PCR Assessment & Plan Post-op Postoperative Procedures: Procedures Operation Date: 08/19/19 18:30 Actual Procedures Side Surgeon p Incision and Drainage Knee. poly exchange Right David Vitale MD Postoperative day: 1 Postoperative status: doing well Postoperative status narrative: She is doing well postoperative day 1 after I and D of a persistently draining right knee wound. This did appear to extend to the proximal tibia with a sinus tract. Postoperative plan: routine post-op care Postoperative plan narrative: She will be maintained on vancomycin and rifampin until labs return with the bacteria identification and sensitivities. A PICC line will be placed today for long-term IV antibiotics. I anticipate she will be in the hospital for 2-3 additional days until we get the bacteria identified so we can arrange for the appropriate outpatient antibiotics. Time Spent With Patient Time with patient: less than 15 minutes
[2019-08-20] MEDS: ACETAMINOPHEN 325 MG TABLET 650 MG PO ×3 (08:25→21:43)
[2019-08-20] MEDS: DULOXETINE 30 MG CAPSULE PO ×2 (08:25→21:43)
[2019-08-20] MEDS: DOCUSATE 100 MG CAPSULE PO ×2 (08:25→21:43)
[2019-08-20] MEDS: GABAPENTIN 300 MG CAPSULE PO ×2 (08:25→21:43)
[2019-08-20] MEDS: VANCOMYCIN 1,000 MG/200 ML PIGGYBACK 200 MG IV ×2 (08:26→20:15)
[2019-08-20] MEDS: rifAMPin 300 MG CAPSULE PO ×2 (08:27→21:36)
--- NOTE | 2019-08-20 10:23 | DI.RAD.S_ITS ---
PROCEDURE: XR CHEST FOR PICC 1V INDICATIONS: PICC line placement COMPARISON: [facility], CR, CHEST 2 VIEW, 12/16/2011, 12:19. FINDINGS: PICC was placed by the intravenous therapy team from the left side. Fluoroscopic spot film demonstrates the tip of PICC projecting to the area of the lower SVC. IMPRESSION: Tip of PICC projects to the area of lower SVC. Dictated by: Дмитрий Paez M.D. on 08/20/2019 at 10:49 Approved by: Дмитрий Paez M.D. on 08/20/2019 at 10:50
--- NOTE | 2019-08-20 11:54 | PT.IIE ---
Surgery Performed Operation Date: 08/19/19 18:30 Actual Procedures p Incision and Drainage Knee. poly exchange(Right) - David Vitale MD Surgical History (Last Reviewed 08/02/19 @ 12:09 by David Vitale MD) Anesthesia (Resolved) H/O bladder repair surgery (Resolved ~1982) H/O total vaginal hysterectomy (Acute ~1983) History of bilateral tubal ligation (Acute) History of left knee replacement (Resolved 06/19/17) History of nasal surgery (Resolved ~1996) History of shoulder surgery (Resolved ~2005) Hx of appendectomy (Acute) Hx of cholecystectomy (Resolved ~1995) Hx of hernia repair (Resolved ~2009) Hx of hysterectomy (Resolved) Hx of repair of right rotator cuff (Acute) Hx of sinus surgery (Acute) Hx of tonsillectomy (Resolved ~1959) S/P total knee arthroplasty (Resolved) Medical History (Last Reviewed 08/19/19 @ 16:13 by David Vitale MD) Acne (Inactive) Active Meniere's disease (Chronic) Acute bilateral low back pain with bilateral sciatica (Acute) Anemia (Acute) Arthritis (Chronic) Fecal incontinence (Chronic) Fibromyalgia (Chronic ~1995) Hearing loss (Chronic ~1968) Heavy menstrual period (Resolved) Hernia (Chronic) History of urinary incontinence (Chronic) Measles (Resolved ~1955) Meniere's disease (Chronic ~1968) Mumps (Resolved ~1960) Osteoarthritis (Chronic ~1974) Restless leg syndrome (Inactive ~1995) RLS (restless legs syndrome) (Acute) Spinal stenosis (Acute) Spondylosis (Acute ~2013) Tinnitus (Chronic ~1968) Vertigo (Chronic ~1968) Physical Therapy Inpatient Evaluation/Re-Eval M1 PT/OT-IP Prior Functional Status Start: 08/20/19 11:42 Freq: NEEDED Status: Active Protocol: Document 08/20/19 11:43 [facility] (Rec: 08/20/19 11:53 [facility] [id number]) Medical Review Prior Functional Status Medical History Reviewed Yes Diet/Fluid Consistency Regular Communication WNL Mobility and Gait Pt typically likes to bike, kayak, and hike. She was limited prior to the surgery d /t pain though. Pt was using cane/walker prior to this surgery. OVerall has felt her ROM has been imprvoignw ell and pain has been subsiding Social History Household Members spouse Living Arrangements House Number of Floors (Floors) 3 or More Floors Number of Stairs To Enter/Railing? no KRISTY, but does need to get to third floor Home Environment Standard Height Toilet M2 PT-IP Current Condition Start: 08/20/19 11:42 Freq: NEEDED Status: Active Protocol: Document 08/20/19 11:43 [facility] (Rec: 08/20/19 11:53 [facility] [id number]) Physical Therapy Current Condition Current Condition Evaluation Date 08/20/19 Treatment Diagnosis I&D w/polyethylene exchange Precautions Other Precautions Per MD order: standard TKA protocol Weight Bearing Status Weight Bearing Status Weight Bear as Tolerated M3 PT-IP Subjective Start: 08/20/19 11:42 Freq: NEEDED Status: Active Protocol: Document 08/20/19 11:43 [facility] (Rec: 08/20/19 11:53 [facility] [id number]) Subjective Physical Therapy Visit Type Type Initial Evaluation Visit Start Time 11:00 Visit Stop Time 11:42 Total Visit Minutes 42 Number of FABRICATION LEAD Visits 0 Physical Therapy Visit Comments Patient Comments Pt agreeable to work with PT Therapy Pain Assessment Pain When Pain Assessed During Mobility Pain Present Pain Present Pain Reported Location Right Knee Pain Management Techniques Apply Cold,Re-positioning M4 PT-IP Mobility and Gait Start: 08/20/19 11:42 Freq: NEEDED Status: Active Protocol: Document 08/20/19 11:43 [facility] (Rec: 08/20/19 11:53 [facility] [id number]) PT-Bed Mobility Assessment Supine to Sit Supine to Sit Independent Sit to Supine Sit to Supine Independent Scooting Scooting to Edge of Bed Independent Scooting Up and Down in Bed Independent PT-Transfer Assessment Sit to and From Stand Sit to and from Stand Standby Assistance,Use of Upper Extremities Equipment Transfer Assistive Device Gait Belt,Front Wheeled Walker Orthotic/Prosthetic Devices or Brace: No Comments Mobility Comments Pt stood to ambulate SBA and amb about 100ft with FWW. She was able to do step trhough gait and worked on posture while ambulating Gait Assessment Gait Gait Assistance Required: Standby Assistance Distance (Feet) 100 Able to Maintain Weight Bearing Status Yes During Gait Assistive Devices Assistive Device Gait Belt,Front Wheeled Walker Orthotic/Prosthetic Devices or Brace: No Gait Deviations General Gait Pattern Antalgic Factors Limiting Gait Function Factors Limiting Gait Function Decreased Strength,Pain PT-Balance Assessment Sitting Balance and Reactions Static Sitting Balance Ability Normal Dynamic Sitting Balance Ability Normal Standing Balance and Reactions Static Standing Balance Ability Good Dynamic Standing Balance Ability Good Device Used FWW M5 PT-IP Objective Assessments Start: 08/20/19 11:42 Freq: NEEDED Status: Active Protocol: Document 08/20/19 11:43 [facility] (Rec: 08/20/19 11:53 [facility] [id number]) Orientation Orientation/Cognition Level of Alertness Alert Language Function Ability No Deficits Noted Safety Awareness Understands Safety Issues Memory Description No Deficits Noted Strength Lower Extremity Strength Assessment Right Impaired Hip grossly 4-/5 RLE M6 PT-IP Treatment Start: 08/20/19 11:42 Freq: NEEDED Status: Active Protocol: Document 08/20/19 11:43 [facility] (Rec: 08/20/19 11:53 [facility] [id number]) Physical Therapy Treatment Exercises Exercises Ankle Pumps,Quad Sets,Straight Leg Raises Education Education Provided Precautions,Safety Other Treatments Other Treatment Performed Discussed with pt not to overdo and that MD order said for standard knee protocol M7 PT-IP Assessment and Plan Start: 08/20/19 11:42 Freq: NEEDED Status: Active Protocol: Document 08/20/19 11:43 [facility] (Rec: 08/20/19 11:53 [id number] PT Summary Assessment and Plan Potential Rehabilitation Potential Good Status of Condition at Evaluation Evolving Summary Impairments Pain,ROM,Strength,Balance, Transfers,Gait,Activity Tolerance Assessment Summary Pt is a pleasant and motivated 68 year old female s/p 2nd I& D with polyethylene exhange this time. Original R TKA on July 252019 with 1st I&D on . She is very cooperative and hopeful to get back to her active lifestyle. She would benefit from PT to work on ROM, strength, gait mechanics & home set up safety . Goals Transfer Goal Independent Gait Goal Independent Gait Distance 200ft Other Goals up/down 3 stories of stairs with rail SBA Days to Meet Goals 5 Frequency of Treatment Frequency Of Treatment Twice a Day Treatment Plan Physical Therapy Treatment Plan Bed Mobility Training,Transfer Training,Gait Training, Therapeutic Exercise,Balance Retraining,Post Op Education, Discharge Planning,Hot or Cold Pack,Neuromuscular Re-ed Other Recommendations and Next Treatment stairs, inc gait and work on Focus mechanics Recommendations To Nursing Amount of Assist Needed Standby Assistance Discharge Recommendations PT Discharge Recommendations Home with Assistance, Outpatient PT Transportation Needs at Discharge Private Vehicle
--- NOTE | 2019-08-20 11:54 | PT.OIE ---
Past Medical History (Last Reviewed 08/19/19 @ 16:13 by David Vitale MD) Acne (Inactive) Active Meniere's disease (Chronic) Acute bilateral low back pain with bilateral sciatica (Acute) Anemia (Acute) Arthritis (Chronic) Fecal incontinence (Chronic) Fibromyalgia (Chronic ~1995) Hearing loss (Chronic ~1968) Heavy menstrual period (Resolved) Hernia (Chronic) History of urinary incontinence (Chronic) Measles (Resolved ~1955) Meniere's disease (Chronic ~1968) Mumps (Resolved ~1960) Osteoarthritis (Chronic ~1974) Restless leg syndrome (Inactive ~1995) RLS (restless legs syndrome) (Acute) Spinal stenosis (Acute) Spondylosis (Acute ~2013) Tinnitus (Chronic ~1968) Vertigo (Chronic ~1968) Past Surgical History (Last Reviewed 08/02/19 @ 12:09 by David Vitale MD) Anesthesia (Resolved) H/O bladder repair surgery (Resolved ~1982) H/O total vaginal hysterectomy (Acute ~1983) History of bilateral tubal ligation (Acute) History of left knee replacement (Resolved 06/19/17) History of nasal surgery (Resolved ~1996) History of shoulder surgery (Resolved ~2005) Hx of appendectomy (Acute) Hx of cholecystectomy (Resolved ~1995) Hx of hernia repair (Resolved ~2009) Hx of hysterectomy (Resolved) Hx of repair of right rotator cuff (Acute) Hx of sinus surgery (Acute) Hx of tonsillectomy (Resolved ~1959) S/P total knee arthroplasty (Resolved) Visit Care Team Role Provider Type Scott Mao MD Primary Care Provider Non-Staff Specialty: Family Practice Address: [address] [place] [address], [address], [place], [address] Fax: Email: David Vitale MD Admit Provider Physician Attending Provider Referring Provider Specialty: Orthopedic Surgery Address: [address] [place] [address], [id number] Email: [email or web address]
--- NOTE | 2019-08-20 14:48 | PT-IP ANOTE ---
Pt just getting back into bed with assist of STITCHING MACHINE OPERATOR, pt stated she just wasn't feeling well but has been doing her exercises that Leatha showed her this morning. PT will check back with pt in the morning.
--- NOTE | 2019-08-20 14:53 | DIET.PN ---
Dietary Progress Note pt called down to kitchen requesting [facility] [place] per recc from physical therapist on [facility]. Pt appropriate for [facility] [place] so will send bid at [facility] [employer] [facility] until d/c at which time she can purchase by the each or case from [place] [facility] @ [employer].
--- NOTE | 2019-08-20 16:20 | CM.DANOTE ---
Discharge Planning/Care Management DCP: Assessment: case received, EMR reviewed and met with pt and her , a retired physician. Pt admitted yesterday to care of Dr. Vitale for a post op RTKA infection: see template below for details. Payer: Medicare and [employer] Admission status: INPT. Pt was taken to surgery for a polyexchange and I&D with plan for IV antibiotics at d/c. He anticipates that pt will be here for a couple more days so as to identify the correct antibiotics needed. Both note that the [employer] is an excellent plan and pt's spouse Derrick is currently checking into coverage for home infusion services by way of his insurance rep. Explained the home infusion process and payment issues re same as Medicare does not cover home infusion but the [employer] plan may cover much of it. Agreed to sent referral to [employer] to start this process. They are familiar with this company from friends on the [facility] who successfully uses this IV antibiotics. Have now contacted [employer] and faxed initial information plus face sheet and PICC information. Liat states she will get this to the business office so that the insurance process can be started and then will hand case over to their liaison Baljit to follow up. Pt and her are updated and given an IS brochure. P: DCP team to follow to assist with plan for pt to go home with IV antibiotics as per outline by Dr. Vitale. Advanced directive, confirm from FAMILY Start: 08/19/19 14:06 Freq: Q24H Status: Active Protocol: Document 08/19/19 14:06 EM (Rec: 08/19/19 14:31 EM [id number]) Advance Directive, confirm on record Time 14:31 Person contacted David Copy received No Document 08/20/19 14:06 EM (Rec: 08/20/19 14:49 EM [id number]) Advance Directive, confirm on record Time 14:31 Person contacted David Copy received No CM Discharge Assessment Start: 08/20/19 16:12 Freq: Status: Active Protocol: Document 08/20/19 16:12 ITV (Rec: 08/20/19 16:20 ITV [id number]) Discharge Planning Assessment Advance Directives? Yes Advance Directives on File No History Provided By Patient,Family Member,Medical Record Has Patient been admitted in last 30 Yes days? Comment in June for a R TKA and with a d/c to home setting 07/26. Readmitted 08/18 for post op R knee infection Prior Living Arrangements House Household Members spouse Review Status In Process
--- NOTE | 2019-08-20 23:45 | PC.NURSE ---
Report received, care assumed 1530. Pt. A&Ox3. VSS. Pain controlled with PO meds, ice. Pt. ambulatory within room, FWW, standby assist.
[2019-08-21] VITALS (8 sets, daily range): BP systolic 100–120; BP diastolic 60–74; PULSE 67–94; RESP 15–18; TEMP 35.9–36.9; O2SAT 95–98
[2019-08-21] MEDS: OXYCODONE IR 5 MG TABLET PO ×5 (00:11→18:29)
--- NOTE | 2019-08-21 07:04 | PM.PNPO.1 ---
Subjective Subjective Date Patient Seen: 08/21/19 Time Patient Seen: 07:04 Interval history: The patient reports concerns regarding her general medical status. She is depressed about her situation with the infected total knee. Pain has not been a serious issue. Exam Vital Signs (past 8 hours): - 08/21/19 00:30 08/21/19 06:11 Temperature 98.4 F 97.9 F Pulse Rate 94 H 79 Respiratory Rate 16 16 Blood Pressure 110/74 100/69 Pulse Oximetry 95 97 Oxygen Delivery Method Room Air Oxygen Flow Rate 0 Narrative Exam Narrative: The patient is examined while standing at the sink. She is able to walk back and forth using a walker. The dressing his moderately stained with drainage. Cultures are no growth to date. Objective Labs Result Diagrams: 08/20/19 05:05 08/20/19 05:05 Assessment & Plan Post-op Postoperative Procedures: Procedures Operation Date: 08/19/19 18:30 Actual Procedures Side Surgeon p Incision and Drainage Knee. poly exchange Right David Vitale MD Postoperative day: 2 Postoperative status: doing well Postoperative status narrative: The patient is stable postoperative day 2 status post I&D of total knee for sinus tract formation. Cultures are negative to date. Postoperative plan narrative: We will leave the drain in place as it is still putting out 50 mL. We will change the dressing to another suction drainage dressing. We will recheck the cultures tomorrow morning and change antibiotics if appropriate. Time Spent With Patient Time with patient: less than 15 minutes
[2019-08-21] MEDS: DULOXETINE 30 MG CAPSULE PO ×2 (08:03→20:52)
[2019-08-21] MEDS: rifAMPin 300 MG CAPSULE PO ×2 (08:03→20:51)
[2019-08-21] MEDS: DOCUSATE 100 MG CAPSULE PO ×2 (08:04→20:52)
[2019-08-21] MEDS: ACETAMINOPHEN 325 MG TABLET 650 MG PO ×3 (08:04→20:52)
[2019-08-21] MEDS: GABAPENTIN 300 MG CAPSULE PO ×2 (08:04→20:52)
[2019-08-21] MEDS: SODIUM CHLORIDE 0.9% FLUSH 10 ML IV (08:05)
[2019-08-21 08:32] LABS: Vancomycin Trough 9.4 ug/mL (10-20)
[2019-08-21] MEDS: VANCOMYCIN TROUGH 1 REQUEST MISC (08:44)
[2019-08-21] MEDS: VANCOMYCIN 1,500 MG/300 ML FROZ.PIGGY 200 MG IV ×2 (09:45→20:51)
--- NOTE | 2019-08-21 11:01 | PT.IPTN ---
Surgery Performed Operation Date: 08/19/19 18:30 Actual Procedures p Incision and Drainage Knee. poly exchange(Right) - David Vitale MD Physical Therapy Treatment Note M2 PT-IP Current Condition Start: 08/20/19 11:42 Freq: NEEDED Status: Active Protocol: Document 08/20/19 11:43 LR (Rec: 08/20/19 11:53 [facility] [id number]) Physical Therapy Current Condition Current Condition Evaluation Date 08/20/19 Treatment Diagnosis I&D w/polyethylene exchange Precautions Other Precautions Per MD order: standard TKA protocol Weight Bearing Status Weight Bearing Status Weight Bear as Tolerated M3 PT-IP Subjective Start: 08/20/19 11:42 Freq: NEEDED Status: Active Protocol: Document 08/21/19 10:42 SP (Rec: 08/21/19 14:36 SP [email or web address]) Subjective Physical Therapy Visit Type Type Treatment Note Visit Start Time 10:42 Visit Stop Time 11:01 Total Visit Minutes 19 Number of BUSINESS OPERATIONS DIRECTOR Visits 1 Physical Therapy Visit Comments Patient Comments Pt agreeable to PT. Therapy Pain Assessment Pain When Pain Assessed During Mobility Pain Present Pain Present Pain Reported Location Right Knee Intensity 3 Scale Used Numeric (0 - 10) Description Burning,With Movement Pain Behaviors Facial Grimacing Pain Management Techniques Apply Cold,Re-positioning, Timing of Activity with Medications M4 PT-IP Mobility and Gait Start: 08/20/19 11:42 Freq: NEEDED Status: Active Protocol: Document 08/21/19 10:42 SP (Rec: 08/21/19 14:36 SP [id number]) PT-Transfer Assessment Sit to and From Stand Sit to and from Stand Standby Assistance,Use of Upper Extremities Equipment Transfer Assistive Device Gait Belt,Front Wheeled Walker Orthotic/Prosthetic Devices or Brace: No Transfers Transfer Destination Chair Transfer Technique pt ambulated using FWW Transfer Ability Level of Assist Standby Assistance,Use of Upper Extremities Comments Mobility Comments Pt was reclined in chair when arrived. Pt completed post-op exercises approx 100 deg R knee flexion: ankle pumps, heel slides, quad and glut sets, LAQ once sitting. sit <> stand SBA with support for IV pole. Pt ambulated further distance chair to stairs and back approx 275 ft using FWW SBA. Ascend/descend 21 stairs using BHR and R HR to assimulate home 3 flights of stairs step to patterning sBA. Pt improved with knee flexion and heel toe patterning as distance progressed. Pt was reclined in chair when returned, all needs and call light in reach before left. Gait Assessment Gait Gait Assistance Required: Standby Assistance Distance (Feet) 275 Able to Maintain Weight Bearing Status Yes During Gait Assistive Devices Assistive Device Gait Belt,Front Wheeled Walker Orthotic/Prosthetic Devices or Brace: No Gait Deviations General Gait Pattern Antalgic Factors Limiting Gait Function Factors Limiting Gait Function Decreased Strength,Pain Comments Gait Comments see mobility comments Stair Climbing Assessment Evaluation Level of Assist On Stairs Standby Assistance Devices Stair Climbing Assistive Devices Left Railing,Right Railing Technique/Endurance Stair Climbing Direction Ascend and Descend Stair Climbing Technique Step to Step Number of Steps Climbed 3 Stair Climbing Set # Repetitions (reps) 7 Comments Stair Climbing Comments see mobility comments PT-Balance Assessment Sitting Balance and Reactions Static Sitting Balance Ability Normal Dynamic Sitting Balance Ability Normal Standing Balance and Reactions Static Standing Balance Ability Good Dynamic Standing Balance Ability Good Device Used FWW M5 PT-IP Objective Assessments Start: 08/20/19 11:42 Freq: NEEDED Status: Active Protocol: Document 08/20/19 11:43 LR (Rec: 08/20/19 11:53 [facility] [id number]) Orientation Orientation/Cognition Level of Alertness Alert Language Function Ability No Deficits Noted Safety Awareness Understands Safety Issues Memory Description No Deficits Noted Strength Lower Extremity Strength Assessment Right Impaired Hip grossly 4-/5 RLE M6 PT-IP Treatment Start: 08/20/19 11:42 Freq: NEEDED Status: Active Protocol: Document 08/21/19 10:42 SP (Rec: 08/21/19 14:36 SP [email or web address]) Physical Therapy Treatment Exercises Exercises Ankle Pumps,Quad Sets,Straight Leg Raises Education Education Provided Precautions,Safety Other Treatments Other Treatment Performed Discussed with pt not to overdo and that MD order said for standard knee protocol M7 PT-IP Assessment and Plan Start: 08/20/19 11:42 Freq: NEEDED Status: Active Protocol: Document 08/21/19 10:42 SP (Rec: 08/21/19 14:36 SP [email or web address]) PT Summary Assessment and Plan Potential Rehabilitation Potential Good Status of Condition at Evaluation Evolving Summary Impairments Pain,ROM,Strength,Balance, Transfers,Gait,Activity Tolerance Assessment Summary Pt required SBA for all mobility using FWW. Pt able to walk further distance 275 ft using FWW SBA and stair mgt 1 -2 HRs SBA, therapsist managed IV pole. She would benefit from outpatient PT to work on ROM, strength, gait mechanics & home set up safety after DC. Goals Transfer Goal Independent Gait Goal Independent Gait Distance 200ft Other Goals gait with SPC vs walking stick short distances, LRAD, ther ex, gait distance. Days to Meet Goals 5 Frequency of Treatment Frequency Of Treatment Twice a Day Treatment Plan Physical Therapy Treatment Plan Bed Mobility Training,Transfer Training,Gait Training, Therapeutic Exercise,Balance Retraining,Post Op Education, Discharge Planning,Hot or Cold Pack,Neuromuscular Re-ed Other Recommendations and Next Treatment inc gait LRAD and work on Focus mechanics Recommendations To Nursing Amount of Assist Needed Standby Assistance Discharge Recommendations PT Discharge Recommendations Home with Assistance, Outpatient PT Transportation Needs at Discharge Private Vehicle
--- NOTE | 2019-08-21 11:40 | CM.DPC ---
Addendum entered by Saskia Montemayor R.N. 08/21/19 13:55: Met with patient and her , Derrick. He has been researching her insurance, [employer]. Stated that she has 90% coverage if in network, and 70% coverage when out of network. Called Baljit at [employer] back and asked him to call patient's , instead of patient, to discuss. gave a phone number of [id number], to get an authorization. The number is [phone]. [facility] [employer] is most likely to work on getting authorization, but will give this information to Baljit. Left him a message to call back. Discussed home health with patient and , and stated, this would be helpful. Let them know that this would be covered by her Medicare. Original Note: DCP Cont: Checked in with patient. She had been up working with P.T. Confirmed that her was checking on her insurance, [employer], for infusion benefit. Discussed home health option as well. She mentioned, 'it would be so much better if someone can come to the house, for it's not easy to get around. Discussed home health nursing coming in as well, to perform lab draws if needed, and PICC line dressing changes. Spoke to Baljit at [facility] [employer]. He mentioned that they are looking into the cost of the medications. At this time, she is on Vancomycin, and this could change, depending on what grows in culture. Let Baljit know that he would be updated. He was also inquiring if Dr. Vitale would be following for any orders, as well. Will have to discuss with him. P: DCP to continue to follow. May meet with patient's later today, as well. Patient will need face to face signed by Dr. Vitale as well. Saskia Montemayor RN/[employer]
--- NOTE | 2019-08-21 16:24 | PT.IPTN ---
Surgery Performed Operation Date: 08/19/19 18:30 Actual Procedures p Incision and Drainage Knee. poly exchange(Right) - David Vitale MD Physical Therapy Treatment Note M2 PT-IP Current Condition Start: 08/20/19 11:42 Freq: NEEDED Status: Active Protocol: Document 08/20/19 11:43 [facility] (Rec: 08/20/19 11:53 [facility] [id number]) Physical Therapy Current Condition Current Condition Evaluation Date 08/20/19 Treatment Diagnosis I&D w/polyethylene exchange Precautions Other Precautions Per MD order: standard TKA protocol Weight Bearing Status Weight Bearing Status Weight Bear as Tolerated M3 PT-IP Subjective Start: 08/20/19 11:42 Freq: NEEDED Status: Active Protocol: Document 08/21/19 15:53 SP (Rec: 08/21/19 17:44 SP [email or web address]) Subjective Physical Therapy Visit Type Type Treatment Note Visit Start Time 15:53 Visit Stop Time 16:24 Total Visit Minutes 31 Notes attended treatment observation. Number of DELIVERY ASSOCIATE Visits 2 Physical Therapy Visit Comments Patient Comments Pt agreeable to PT. Therapy Pain Assessment Pain When Pain Assessed During Mobility Pain Present Pain Present Pain Reported Location Right Knee Intensity 2 Scale Used Numeric (0 - 10) Pain Management Techniques Apply Cold,Re-positioning, Timing of Activity with Medications M4 PT-IP Mobility and Gait Start: 08/20/19 11:42 Freq: NEEDED Status: Active Protocol: Document 08/21/19 15:53 SP (Rec: 08/21/19 17:44 SP [email or web address]) PT-Transfer Assessment Sit to and From Stand Sit to and from Stand Standby Assistance,Use of Upper Extremities Equipment Transfer Assistive Device Gait Belt,Front Wheeled Walker Orthotic/Prosthetic Devices or Brace: No Transfers Transfer Destination Chair,Toilet Transfer Technique pt ambulated using FWW Transfer Ability Level of Assist Standby Assistance,Use of Upper Extremities Comments Mobility Comments Pt was reclined in chair when arrived. Pt complete sit to stand using BUE using FWW SBA, initially ambulated using FWW then SPC room distance CGA approx 30 ft then further into hallway, stable. Pt was able to walk approx 150 ft using SPC but needed to return to room short distance due to noted increase blood leakage from wound vac down leg and absorbed by SCDs so returned to room and notified nurse to check and DANDY OPERATOR provided new SCDs. Pt completed transfer on /off toilet SBA while using grab bar and self care. Pt was sitting in chair before left with call light and all needs in reach, in room before left. Gait Assessment Gait Gait Assistance Required: Standby Assistance Distance (Feet) 150 Able to Maintain Weight Bearing Status Yes During Gait Assistive Devices Assistive Device Gait Belt,Front Wheeled Walker Orthotic/Prosthetic Devices or Brace: No Gait Deviations General Gait Pattern Antalgic Factors Limiting Gait Function Factors Limiting Gait Function Decreased Strength,Pain Comments Gait Comments see mobility comments PT-Balance Assessment Sitting Balance and Reactions Static Sitting Balance Ability Normal Dynamic Sitting Balance Ability Normal Standing Balance and Reactions Static Standing Balance Ability Good Dynamic Standing Balance Ability Good Device Used FWW and SPC M5 PT-IP Objective Assessments Start: 08/20/19 11:42 Freq: NEEDED Status: Active Protocol: Document 08/20/19 11:43 LR (Rec: 08/20/19 11:53 LR [id number]) Orientation Orientation/Cognition Level of Alertness Alert Language Function Ability No Deficits Noted Safety Awareness Understands Safety Issues Memory Description No Deficits Noted Strength Lower Extremity Strength Assessment Right Impaired Hip grossly 4-/5 RLE M6 PT-IP Treatment Start: 08/20/19 11:42 Freq: NEEDED Status: Active Protocol: Document 08/21/19 15:53 SP (Rec: 08/21/19 17:44 SP [email or web address]) Physical Therapy Treatment Education Education Provided Precautions,Safety Other Treatments Other Treatment Performed Discussed with pt and not to overdo and that MD order said for standard knee protocol M7 PT-IP Assessment and Plan Start: 08/20/19 11:42 Freq: NEEDED Status: Active Protocol: Document 08/21/19 15:53 SP (Rec: 08/21/19 17:44 SP [email or web address]) PT Summary Assessment and Plan Potential Rehabilitation Potential Good Status of Condition at Evaluation Evolving Summary Impairments Pain,ROM,Strength,Balance, Transfers,Gait,Activity Tolerance Assessment Summary Pt required SBA for all mobility using FWW, CGA during tranfer and gait with SPC,150 ft. She would benefit from outpatient PT to work on ROM, strength. Goals Transfer Goal Independent Gait Goal Independent Gait Distance 200ft Other Goals gait with SPC vs walking stick short distances, LRAD, ther ex, gait distance. Days to Meet Goals 5 Frequency of Treatment Frequency Of Treatment Twice a Day Treatment Plan Physical Therapy Treatment Plan Bed Mobility Training,Transfer Training,Gait Training, Therapeutic Exercise,Balance Retraining,Post Op Education, Discharge Planning,Hot or Cold Pack,Neuromuscular Re-ed Other Recommendations and Next Treatment inc gait LRAD (walking cane vs Focus SPC) and work on mechanics Recommendations To Nursing Amount of Assist Needed 1 Person Assist Discharge Recommendations PT Discharge Recommendations Home with Assistance, Outpatient PT Transportation Needs at Discharge Private Vehicle
[2019-08-22] MEDS: OXYCODONE IR 5 MG TABLET PO ×4 (01:08→17:17)
[2019-08-22 02:36] VITALS: BP 103/65; PULSE 68; RESP 17; TEMP 36.3; O2SAT 98
[2019-08-22 07:55] VITALS: BP 118/65; PULSE 75; RESP 15; TEMP 36.6; O2SAT 100
[2019-08-22] MEDS: GABAPENTIN 300 MG CAPSULE PO ×2 (08:38→20:54)
[2019-08-22] MEDS: DULOXETINE 30 MG CAPSULE PO ×2 (08:38→20:54)
[2019-08-22] MEDS: rifAMPin 300 MG CAPSULE PO (08:38)
[2019-08-22] MEDS: DOCUSATE 100 MG CAPSULE PO ×2 (08:38→20:54)
[2019-08-22] MEDS: VANCOMYCIN 1,500 MG/300 ML FROZ.PIGGY 200 MG IV ×2 (08:43→22:24)
--- NOTE | 2019-08-22 10:40 | P.PN_ITS ---
Subjective Subjective Date Patient Seen: 08/22/19 Time Patient Seen: 08:30 Interval history: The patient expressed anxiety over several issues including multiple articles that have been sent to her by her after Google search. I addressed these each in turn. Exam Vital Signs (past 8 hours): - 08/22/19 07:55 Temperature 97.8 F Pulse Rate 75 Respiratory Rate 15 Blood Pressure 118/65 Pulse Oximetry 100 Oxygen Delivery Method Room Air Oxygen Flow Rate 0 Narrative Exam Narrative: Right knee wound is dressed with a single small spot of drainage on the bandage smaller than a dime. The drain has put out 103 mL over 24 hours. She is walking well on the knee. Light touch and motion are intact in the right lower extremity. Calf is soft. Objective Labs Result Diagrams: 08/20/19 05:05 08/20/19 05:05 Assessment & Plan Post-op Postoperative Procedures: Procedures Operation Date: 08/19/19 18:30 Actual Procedures Side Surgeon p Incision and Drainage Knee. poly exchange Right David Vitale MD Postoperative day: 3 Postoperative status: doing well Postoperative status narrative: The patient is stable postoperative day 3 status post I&D and polyethylene exchange for sinus tract formation in the right total knee replacement. She has minimal drainage on the bandage. The drainage through the drain is moderate but we will discontinue it as it is 3 days out from surgery. She has been afebrile. She is showing no systemic signs of infection. Unfortunately cultures are negative, likely due to the exposure to oral Keflex from her primary caregiver prior to reporting for surgery. Postoperative plan: routine post-op care Postoperative plan narrative: We will discontinue the drain is I have noted. She will remain in the hospital for 1 additional day as we are obtaining a vancomycin trough measurement this evening to finalize her dosage. I have consulted Infectious Disease at [facility]. They have suggested that we discontinue rifampin for the time being and add ceftriaxone 2 g every 24 hours to the vancomycin. I have contacted the microbiology lab and we have requested both PCR on the tissue that was sent and extended culture for C. acnes. She has requested a herbologist consult and I have ordered this and liver function tests. We anticipate likely discharge tomorrow. Time Spent With Patient Time with patient: 25 - 35 minutes
[2019-08-22] MEDS: CEFTRIAXONE 2 GM/50 ML FROZ.PIGGY IV (10:48)
--- NOTE | 2019-08-22 12:00 | PT.IPTN ---
Current Diagnoses Infection and inflammatory reaction due to internal right knee prosthesis, initial encounter (08/19/19) Surgery Performed Operation Date: 08/19/19 18:30 Actual Procedures p Incision and Drainage Knee. poly exchange(Right) - David Vitale MD Physical Therapy Treatment Note M2 PT-IP Current Condition Start: 08/20/19 11:42 Freq: NEEDED Status: Active Protocol: Document 08/20/19 11:43 [facility] (Rec: 08/20/19 11:53 [facility] [id number]) Physical Therapy Current Condition Current Condition Evaluation Date 08/20/19 Treatment Diagnosis I&D w/polyethylene exchange Precautions Other Precautions Per MD order: standard TKA protocol Weight Bearing Status Weight Bearing Status Weight Bear as Tolerated M3 PT-IP Subjective Start: 08/20/19 11:42 Freq: NEEDED Status: Active Protocol: Document 08/22/19 11:15 SP (Rec: 08/22/19 14:01 SP [email or web address]) Subjective Physical Therapy Visit Type Type Treatment Note Visit Start Time 11:15 Visit Stop Time 12:00 Total Visit Minutes 45 Notes Able to see patient on 3rd attempt, busy with 2 IV application per nursing when arrived. Number of EXTRACORPOREAL CIRCULATION SPECIALIST Visits 3 Physical Therapy Visit Comments Patient Comments Pt agreeable to PT tx. Therapy Pain Assessment Pain When Pain Assessed During Mobility Pain Present Pain Present Pain Reported Location Right Knee Intensity 2 Scale Used low discomfort Pain Management Techniques Apply Cold,Re-positioning, Timing of Activity with Medications M4 PT-IP Mobility and Gait Start: 08/20/19 11:42 Freq: NEEDED Status: Active Protocol: Document 08/22/19 11:15 SP (Rec: 08/22/19 14:01 SP [email or web address]) PT-Transfer Assessment Sit to and From Stand Sit to and from Stand Standby Assistance,Use of Upper Extremities Equipment Transfer Assistive Device Gait Belt,Front Wheeled Walker Orthotic/Prosthetic Devices or Brace: No Transfers Transfer Destination Chair,Toilet Transfer Technique pt ambulated Transfer Ability Level of Assist Standby Assistance,Contact Guard Assistance Comments Mobility Comments Pt was seated in chair when arrived. Instructed post op ex : quad set, SLR, ankle pumps, heel slide <90deg, seated LAQ x5 reps each during IV finished. Nurse removed IV and wound VAC before walking and applied thick sterile gauze dressing. Pt sit <> stand BUE from chair arms using FWW initially then ambulated chair to toilet, sit to stand using R grab bar for support, self hygiene, used walk stick CGA toilet to sink initially decreasing to SBA as further into hallway approx 250 ft. Pt complete ascend/desend 21 stairs again B HR SBA, stable/ safe. Pt taped wound noted increased bleeding on return to room, notified nursing to change dressing again. Pt was seated in chair and nurse helping patient. All needs and calll light in reach before left. Gait Assessment Gait Gait Assistance Required: Standby Assistance Distance (Feet) 250 Able to Maintain Weight Bearing Status Yes During Gait Assistive Devices Assistive Device Gait Belt,Straight Cane Orthotic/Prosthetic Devices or Brace: No Gait Deviations General Gait Pattern Antalgic Factors Limiting Gait Function Factors Limiting Gait Function Decreased Strength,Pain Comments Gait Comments see mobility comments Stair Climbing Assessment Evaluation Level of Assist On Stairs Standby Assistance Devices Stair Climbing Assistive Devices Left Railing,Right Railing Technique/Endurance Stair Climbing Direction Ascend and Descend Stair Climbing Technique Step to Step Number of Steps Climbed 3 Stair Climbing Set # Repetitions (reps) 7 Comments Stair Climbing Comments see mobility comments PT-Balance Assessment Sitting Balance and Reactions Static Sitting Balance Ability Normal Dynamic Sitting Balance Ability Normal Standing Balance and Reactions Static Standing Balance Ability Good Dynamic Standing Balance Ability Good Device Used FWW, walking stick M5 PT-IP Objective Assessments Start: 08/20/19 11:42 Freq: NEEDED Status: Active Protocol: Document 08/20/19 11:43 [facility] (Rec: 08/20/19 11:53 [facility] [id number]) Orientation Orientation/Cognition Level of Alertness Alert Language Function Ability No Deficits Noted Safety Awareness Understands Safety Issues Memory Description No Deficits Noted Strength Lower Extremity Strength Assessment Right Impaired Hip grossly 4-/5 RLE M6 PT-IP Treatment Start: 08/20/19 11:42 Freq: NEEDED Status: Active Protocol: Document 08/22/19 11:15 SP (Rec: 08/22/19 14:01 SP [email or web address]) Physical Therapy Treatment Exercises Exercises Ankle Pumps,Quad Sets,Heel Slides,Straight Leg Raises, Seated Knee Flexion/Extension Knee ROM Measurement approx 90 deg Education Education Provided Precautions,Safety M7 PT-IP Assessment and Plan Start: 08/20/19 11:42 Freq: NEEDED Status: Active Protocol: Document 08/22/19 11:15 SP (Rec: 08/22/19 14:01 SP [email or web address]) PT Summary Assessment and Plan Potential Rehabilitation Potential Good Status of Condition at Evaluation Evolving Summary Impairments Pain,ROM,Strength,Balance, Transfers,Gait,Activity Tolerance Assessment Summary Pt required SBA for all mobility using FWW, CGA-SBA usign walking stick gait into hallway. She would benefit from outpatient PT to work on ROM, strength. Pt is able to go home with for assist when medically stable stair. Recommending outpt PT to improve strength, ROM LRAD for functional mobility. Goals Transfer Goal Independent Gait Goal Independent Gait Distance 200ft Other Goals ther ex, gait distance walking stick. Days to Meet Goals 5 Frequency of Treatment Frequency Of Treatment Twice a Day Treatment Plan Physical Therapy Treatment Plan Bed Mobility Training,Transfer Training,Gait Training, Therapeutic Exercise,Balance Retraining,Post Op Education, Discharge Planning,Hot or Cold Pack,Neuromuscular Re-ed Other Recommendations and Next Treatment gait walking stick, standing Focus balance Recommendations To Nursing Amount of Assist Needed Standby Assistance Discharge Recommendations PT Discharge Recommendations Home with Assistance, Outpatient PT Transportation Needs at Discharge Private Vehicle
--- NOTE | 2019-08-22 12:12 | DIET.PN ---
Dietary Progress Note Assessment: 68y F admitted for wound infection s/p knee replacement 1mo ago referred to nutrition for probiotic education. Pt set to d/c on IV abx c possibility of needing longer term (6w+ abx therapy) concerned for impact on gut microbiome. Educated pt on dietary factors which can aid delayed wound healing including: -keeping BG <200 to support collagen formation and reduce likelihood of bacterial infections. Pt has family hx of T1 and T2D, will purchase glucometer and monitor BGs several times per day for next few weeks to assess BG trends. Pt's is pizza baker and can help, pt has RD contact info for questions. -ensuring adequate protein intake to support positive nitrogen balance. Recc pt consume 100g PRO/d until wound is healed (1.2g/kg), reducing to 75g/d (0.9g/kg) for maintenance. Pt is drinking [employer] providing 28% PRO needs, purchased a case for [employer] to continue at home. Provided pt Protein content of food handout highlighting foods pt enjoys. Pt not eating red meat but found many items she is willing to consume. -reducing inflammatory factors from diet. Pt drinks up to 2 glasses wine per night. Pt suggested stopping this until wound is healed. Supported pt in this choice and reinforced decision. In regards to Probiotics, instructed pt on spacing probiotics 2h before or after abx administration for best results. Discussed food-based and supplement probiotics. Discussed importance of prebiotics to feed the good bacteria. Pt has prebiotic supp at home but has a garden and eats a variety of high fiber plant foods to supply prebiotics. Suggested pt continue eating probiotic foods rn long term care. Provided pt with Prebiotic and Probiotic handout. EER: 100g PRO (1.2g/kg per wounds) Monitoring/Evaluations: Pt has RD card to call c further questions/support
[2019-08-22 12:35] VITALS: BP 110/55; PULSE 73; RESP 15; TEMP 36.6; O2SAT 100
[2019-08-22 13:24] LABS: Alanine Aminotransferase 20 IU/L (<35); Albumin 3.8 g/dL (3.5-5.0); Albumin Globulin Ratio 1.4 (1.0-2.8); Alkaline Phosphatase 74 U/L (38-126); Aspartate Aminotransferase 32 IU/L (14-36); BUN Creatinine Ratio 30.2 (6-22); Bilirubin Total 0.4 mg/dL (0.2-1.3); Blood Urea Nitrogen 19 mg/dL (7-17); Calcium 9.3 mg/dL (8.4-10.2); Carbon Dioxide 29 mmol/L (22-32); Chloride 102 mmol/L (98-107); Estimated Glomerular Filt Rate > 60.0 mL/min (>60); Globulin 2.7 g/dL (1.7-4.1); Glucose 124 mg/dL (80-110); HEMOLYSIS < 15 (0-50); Potassium 4.1 mmol/L (3.4-5.1); Sodium 136 mmol/L (137-145); Total Protein 6.5 g/dL (6.3-8.2)
--- NOTE | 2019-08-22 14:14 | PT-IP ANOTE ---
Pt declined pm treatment when arrived, I am really tired and want to take a nap. Pt asked if nursing could walk with her later if wanting to, PLUMBING TECHNICIAN verbalized it would be good to mobilize later. PT will check back tomorrow am.
--- NOTE | 2019-08-22 14:26 | CM.DPC ---
Addendum entered by Saskia Montemayor R.N. 08/22/19 14:47: Spoke to Roc at [facility], and let him know that referral was just faxed over. Let him know that home health would be under her Medicare. He is requesting that it is noted when her last dressing change was on her PICC line before discharge, so that they will have a better idea as when dressing change is due. Let him know that tomorrow is discharge, and that [facility] is also involved. Will fill out face to face and attach it to face sheet. Discharge summary, orders, and face to face can be faxed to [facility] tomorrow. Roc stated that their nurse that services the [facility] also lives in [place], so may be more convenient as well. Original Note: DCP Cont: Dr. Vitale came by the office and was considering discharge patient today, but wanted to check in with infections disease over at [facility] to ensure that she would be getting the appropriate antibiotics, for her culture noted no growth secondary to her being on P.O. antibiotics. Updated Baljit at [facility] and would let him know when a script was received, [place]. Plan is also to order [facility] nursing, to perform lab draws as needed, and dressing changes. Also, P.T. as well. Dr. Vitale has decided to keep patient another day secondary to needing another Vancomycin trough. It is noted that he contacted infectious disease department at [facility], and they suggested adding Ceftriaxone Q24 hours, 2 grams, to Vancomycin. Left Baljit a message regarding this, and faxed over note from today reflecting this. Included med list. P: DCP to continue to follow. Will send [facility] information as well, including face sheet, H&P. Will follow up with phone call as well letting them know that tomorrow is expected DC date. Saskia Montemayor RN/Finished Yarn Examiner
[2019-08-22 20:30] VITALS: BP 120/66; PULSE 86; RESP 18; TEMP 36.8; O2SAT 98
[2019-08-22] MEDS: OXYCODONE IR 10 MG TABLET PO (20:54)
[2019-08-22] MEDS: VANCOMYCIN TROUGH 1 REQUEST MISC (21:19)
[2019-08-22 21:35] LABS: Vancomycin Trough 14.7 ug/mL (10-20)
[2019-08-23] VITALS: BP 113/57; PULSE 85; RESP 16; TEMP 36.6; O2SAT 97
[2019-08-23] MEDS: OXYCODONE IR 5 MG TABLET PO ×4 (00:44→16:05)
--- NOTE | 2019-08-23 00:47 | PC.NURSE ---
Patient assisted to bathroom, ambulated indep. w/FWW gait steady. Was able to get in/out of bed w/o assist. Reports pain 4/10 and requested oxycodone 5 mg. SCD reapplied. Call light within reach.
[2019-08-23] MEDS: DULOXETINE 30 MG CAPSULE PO (08:30)
[2019-08-23] MEDS: ACETAMINOPHEN 325 MG TABLET 650 MG PO ×2 (08:30→16:04)
[2019-08-23] MEDS: DOCUSATE 100 MG CAPSULE PO (08:30)
[2019-08-23] MEDS: GABAPENTIN 300 MG CAPSULE PO (08:30)
--- NOTE | 2019-08-23 08:41 | P.DS_ITS ---
History of Present Illness History of Present Illness Date Patient Seen: 08/23/19 Time Patient Seen: 08:41 Chief complaint: DIRECT ADMIT TO IP Narrative: The patient is a 68-year-old woman who underwent a right total knee replacement on July 26, 2019. Postoperatively she had ongoing sanguinous drainage and eventually was returned to the operating room on August 02, 2019 for an incision and drainage of a subcutaneous hematoma. Cultures from this procedure returned negative. There was no evidence of continuity with the joint. She initially did well although she did have some minor continued drainage after this procedure, which continued to be sanguinous. Late on night of last week and into Monday the character of the drainage changed to purulent bianka inage. She was seen on Monday at her primary care office where they started her on Keflex and took a swab culture of the skin. To date this culture is negative. She contacted my office today and was encouraged to come in. She is readmitted for incision and drainage of the right knee with polyethylene exchange. In addition she will be given a PICC line and 6 weeks of IV antibiotics. Discharge Providers Provider Date of admission: 08/19/19 12:51 Discharge Date: 08/23/19 Primary care physician: Scott Mao MD Consults: 08/19/19 20:59 Consult to Discharge Planning Routine Comment: Home IV antibiotics Consult to Physical Therapy Evaluate & Treat Comment: Physician Instructions: postop TKA protocol Consult to Respiratory Therapy Evaluate & Treat Comment: Physician Instructions: Evaluate and treat 08/21/19 19:22 Consult to Dietitian, Adult Routine Comment: Reason For Exam: patient request to address detention antibiotic use 08/22/19 08:18 Consult to Dietitian, Adult Routine Comment: Reason For Exam: Prolonged abx therapy, probiotic suggestions Discharge provider: David Vitale MD Summary Hospital Course Discharge Diagnosis: 1. Infected right total knee replacement 2. Post hemorrhagic anemia Hospital Course: The patient was admitted to the hospital and taken to the operating room on August 19 2019. She underwent the I and D and poly exchange of her right total knee replacement. A drain was placed. The following day she had the placement of a PICC line. She was maintained initially on vancomycin with rifampin. After consultation with Infectious Disease this was changed to vancomycin and ceftriaxone. Cultures did not show any bacteria. The soft tissues were sent for bacterial PCR. The results of that are pending at the time of discharge. She was maintained in the hospital until cultures returned and until a stable antibiotic dose could be determined. Status at Discharge Cognitive/behavioral status at discharge: oriented Functional status at discharge: uses cane/walker Overall status at discharge: patient is progressing back to baseline Time Spent with Patient Time spent: Less than 30 minutes Exam Vital Signs (past 8 hours): Oxygen Delivery Method Room Air Oxygen Flow Rate 0 Narrative Exam Narrative: Right knee wound is dressed with a PIC0 dressing with a small spot of drainage on the bandage. The bandage over her drain site is dry. Calf is soft. Light touch and motion are intact in the right lower extremity. Objective Labs Result Diagrams: 08/20/19 05:05 08/22/19 13:07 Labs: Laboratory Results - last 24 hr 08/22/19 08/22/19 13:07 20:58 Sodium 136 L Potassium 4.1 Chloride 102 Carbon Dioxide 29 BUN 19 H Creatinine 0.63 Estimated GFR > 60.0 BUN/Creatinine Ratio 30.2 H Glucose 124 H Calcium 9.3 Total Bilirubin 0.4 AST 32 ALT 20 Alkaline Phosphatase 74 Total Protein 6.5 Albumin 3.8 Globulin 2.7 Albumin/Globulin Ratio 1.4 Vancomycin Trough 14.7 Discharge Plan Discharge Plan Patient Disposition: Home Discharge orders & Medications Prescriptions: New acetaminophen 325 mg Tablet 650 mg PO TID 30 Days Qty: 180 RF: 0 oxycodone 5 mg Tablet 5 mg PO Q4H PRN (Reason: Pain, Moderate (4-6)) Qty: 40 RF: 0 ceftriaxone in dextrose,iso-os 2 gram/50 mL Piggyback 2 gm IV Q24H 42 Days RF: 0 vancomycin-water inject (PEG) 1.5 gram/300 mL Piggyback 1,500 mg IV Q12H 42 Days Qty: 77227 RF: 0 Continued duloxetine 30 MG capsule,delayed release(DR/EC) 30 mg PO BID Qty: 0 RF: 0 gabapentin 300 mg capsule 300 mg PO BID RF: 0 Discontinued naproxen 500 MG tablet 500 mg PO BID Qty: 0 RF: 0 aspirin 81 mg Tablet,Delayed Release (Dr/Ec) 81 mg PO BID 42 Days Qty: 84 RF: 0 oxycodone 5 mg Tablet 5 mg PO Q4H PRN (Reason: Pain, Moderate (4-6)) Qty: 40 RF: 0 acetaminophen 325 mg tablet 500 mg PO BID PRN (Reason: Pain (Scale Score 1-3)) RF: 0 Follow up/Referrals: Scott Mao MD [Primary Care Provider] - David Vitale MD [Physician] - 1 Week Discharge Health Status Multidrug resistant organism: No MDRO Diet/Activity/Treatments Diet: Diet as Tolerated and Regular Activity: You may bear weight as tolerated on your right leg. Cold/Heat Therapy: Apply ice to the right knee for 15 minutes every hour as needed for pain control. Skin/Wound/Dressing Care Report to your healthcare provider any signs of infection, such as:: chills, fever, night sweats, increased pain, unusual drainage and unusual redness Dressing: Leave the dressing intact until your postoperative follow-up next week. You may shower with the dressing in place Visit Report/Discharge Packet Instructions: DI for Prescription Opioid Use, DI for Incision and Drainage of a Joint, DI for Incision and Drainage Stand Alone Forms: Surgery Discharge Visit Report Forms: Patient Portal/API, Stroke Signs & Symptoms Discharge Data Primary Care Provider: Scott Mao
--- NOTE | 2019-08-23 09:25 | CM.DPC ---
Addendum entered by Keysha Velazquez LPN 08/23/19 11:20: RE: financial issues re this infusion plan. Baljit and pt's spouse have had several discussions re [employer] payment. IS is in network, pt will have a copay and amount cannot be determined beforehand. Spouse has told Baljit he is comfortable with this. Pt has the funds to pay whatever copay will be needed. Addendum entered by Keysha Velazquez LPN 08/23/19 11:15: Followed up on the [facility] referral set in place by DEISI Kruger. Face/Face, specific RN/OT/PT HH orders and d/c summary are now faxed to [facility] with DEISI Hudson's assist and she has also agreed to call them to confirm the d/c is today. Pt and spouse are aware of this HH plan that was discussed prior with Saskia and agreeable to same. Addendum entered by Keysha Velazquez LPN 08/23/19 11:13: Time change: [facility] will be here at 1430 for the teach/handoff. Baljit has updated pt and spouse. They are now planning for the [address] to [place]. PRINCESS Jose is updated. Original Note: DCP: continued: Case received and have now spoken with pt and her and with Dr. Vitale. Pt is now d/c'd and will go on 2 IV antibiotics. Scripts for same are faxed now to [facility]. Have talked with Baljit/TITI. He is coordinating the team to see pt in the hospital, hoping to be here by about 1300 for the teach and hand off of product. He will update pt and her spouse on the timeline now. PRINCESS Jose is updated. Will follow prn until pt leaves.
[2019-08-23] MEDS: CEFTRIAXONE 2 GM/50 ML FROZ.PIGGY IV (09:52)
[2019-08-23 10:00] VITALS: BP 113/63; PULSE 77; RESP 16; TEMP 36.8; O2SAT 99
[2019-08-23] MEDS: VANCOMYCIN 1,500 MG/300 ML FROZ.PIGGY 200 MG IV (10:42)
--- NOTE | 2019-08-23 11:35 | PT.IPTN ---
Current Diagnoses Infection and inflammatory reaction due to internal right knee prosthesis, initial encounter (08/19/19) Surgery Performed Operation Date: 08/19/19 18:30 Actual Procedures p Incision and Drainage Knee. poly exchange(Right) - David Vitale MD Physical Therapy Treatment Note M2 PT-IP Current Condition Start: 08/20/19 11:42 Freq: NEEDED Status: Active Protocol: Document 08/20/19 11:43 [facility] (Rec: 08/20/19 11:53 LR [id number]) Physical Therapy Current Condition Current Condition Evaluation Date 08/20/19 Treatment Diagnosis I&D w/polyethylene exchange Precautions Other Precautions Per MD order: standard TKA protocol Weight Bearing Status Weight Bearing Status Weight Bear as Tolerated M3 PT-IP Subjective Start: 08/20/19 11:42 Freq: NEEDED Status: Active Protocol: Document 08/23/19 11:12 KS (Rec: 08/23/19 13:54 KS [id number]) Subjective Physical Therapy Visit Type Type Treatment Note Visit Start Time 11:12 Visit Stop Time 11:35 Total Visit Minutes 23 Notes Pt agreeable to work w/ therapy, pts present for caregiver training. Number of [employer] Visits 4 M4 PT-IP Mobility and Gait Start: 08/20/19 11:42 Freq: NEEDED Status: Active Protocol: Document 08/23/19 11:12 KS (Rec: 08/23/19 13:54 KS [id number]) PT-Bed Mobility Assessment Supine to Sit Supine to Sit Standby Assistance Sit to Supine Sit to Supine Standby Assistance Scooting Scooting to Edge of Bed Standby Assistance PT-Transfer Assessment Sit to and From Stand Sit to and from Stand Standby Assistance,Use of Upper Extremities Equipment Transfer Assistive Device Gait Belt,Front Wheeled Walker Orthotic/Prosthetic Devices or Brace: No Transfers Transfer Destination Chair,Toilet Transfer Technique pt ambulated w/ walking stick Transfer Ability Level of Assist Standby Assistance Comments Mobility Comments Pt was in bed upon arrival from therapy. SBA for sup<>sit , scooting EOB, and sit<>stand w/ FWW. Pt stated she will not use FWW at home, only walking stick. Pt ambulated to bathroom w/ walking stick and SBA. Pt then ambulated in hallway ~270 ft. w/ CGA safely provided by and walking stick. Pt ambulated safely and was able to maintain balance. Denied fatigue. Pt and state they both feel safe to return home. Left in room w/ all needs in reach. Gait Assessment Gait Gait Assistance Required: Standby Assistance Distance (Feet) 280 Able to Maintain Weight Bearing Status Yes During Gait Assistive Devices Assistive Device Gait Belt,Straight Cane Orthotic/Prosthetic Devices or Brace: No Gait Deviations General Gait Pattern Antalgic Factors Limiting Gait Function Factors Limiting Gait Function Decreased Strength,Pain Comments Gait Comments see mobility comments PT-Balance Assessment Sitting Balance and Reactions Static Sitting Balance Ability Normal Dynamic Sitting Balance Ability Normal Standing Balance and Reactions Static Standing Balance Ability Good Dynamic Standing Balance Ability Good Device Used FWW, walking stick M5 PT-IP Objective Assessments Start: 08/20/19 11:42 Freq: NEEDED Status: Active Protocol: Document 08/20/19 11:43 [facility] (Rec: 08/20/19 11:53 [facility] [id number]) Orientation Orientation/Cognition Level of Alertness Alert Language Function Ability No Deficits Noted Safety Awareness Understands Safety Issues Memory Description No Deficits Noted Strength Lower Extremity Strength Assessment Right Impaired Hip grossly 4-/5 RLE M6 PT-IP Treatment Start: 08/20/19 11:42 Freq: NEEDED Status: Active Protocol: Document 08/23/19 11:12 KS (Rec: 08/23/19 13:54 KS [id number]) Physical Therapy Treatment Education Education Provided Safety M7 PT-IP Assessment and Plan Start: 08/20/19 11:42 Freq: NEEDED Status: Active Protocol: Document 08/23/19 11:12 KS (Rec: 08/23/19 13:54 KS [id number]) PT Summary Assessment and Plan Potential Rehabilitation Potential Good Status of Condition at Evaluation Evolving Summary Impairments Pain,ROM,Strength,Balance, Transfers,Gait,Activity Tolerance Progress Towards Goals Progressing Toward Goals Assessment Summary Pt remains SBA for all mobility, SBA to CGA for ambulation w/ walking stick which was able to safely provide. Pt demonstrated good tolerance for ambulation and able to safely use walking stick and maintain balance and required. Pt and state they both feel safe to return home. Pt will benefit from outpatient therapy to improve strength and ROM. Goals Transfer Goal Independent Gait Goal Independent Gait Distance 200ft Other Goals ther ex, gait distance walking stick. Days to Meet Goals 5 Frequency of Treatment Frequency Of Treatment Twice a Day Treatment Plan Physical Therapy Treatment Plan Bed Mobility Training,Transfer Training,Gait Training, Therapeutic Exercise,Balance Retraining,Post Op Education, Discharge Planning,Hot or Cold Pack,Neuromuscular Re-ed Other Recommendations and Next Treatment gait walking stick, standing Focus balance Recommendations To Nursing Amount of Assist Needed Standby Assistance Discharge Recommendations PT Discharge Recommendations Home with Assistance, Outpatient PT Transportation Needs at Discharge Private Vehicle
--- NOTE | 2019-08-23 18:34 | PC.NURSE ---
patient was happy and eager to leave. Patient was escorted via WC to personal vehicle where her spouse was waiting to load her up. Patient was able to get into the backseat on her own. Discharge teaching was done with patient and spouse at bedside, Care management followed up with patient and spouse regarding home health and home PT/OT to be received post d/c. Questions were asked and answered, hard copies of prescriptions were provided to patient in d/c packet. Patient left w/ PICC line in place as she will be getting post op anti bx at home. VSS, all belongings were gathered and placed on cart and pushed down to vehicle by spouse.
[2019-09-06 10:27] LABS: Bacteria Det by PCR Univ WA SEE SCANNER REPORT
== END 2019-08-23 16:30 | disposition home health service (06) | DRG 486 ==
PROVIDERS: Admitting Provider Orthopaedic Surgery; PCP Family Medicine; Referring Provider Orthopaedic Surgery; Visit Provider Orthopaedic Surgery
PROC: 0SPC09Z Removal of Liner from Right Knee Joint, Open Approach (ICD-10-PCS; principal; 2019-08-19 18:30)
DX: T84.53XA Infection and inflammatory reaction due to internal right knee prosthesis, initial encounter (principal); M00.861 Arthritis due to other bacteria, right knee; M79.7 Fibromyalgia; G25.81 Restless legs syndrome
CPT/HCPCS: 36415; 36569; 36592; 80048; 80053; 80202; 85014; 85018; 85651; 86140; 87070; 87075; 87205; 87635; 87801; 94760; 97110; 97116; 97162; 97530; C1776; J0696; J1100; J1170; J2405; J2704; J3010

== ENCOUNTER → 2019-09-30 11:05 | Outpatient (CLI) | payer MEDICARE, OTHER, SELFPAY ==
[2019-08-19 14:00] VITALS: BMI 28.2
--- NOTE | 2019-09-30 11:07 | DI.RAD.S_ITS ---
PROCEDURE: XR LUMBAR SPINE MIN 4V INDICATIONS: LBP TECHNIQUE: 5 views of the lumbar spine were acquired. COMPARISON: None. FINDINGS: Bones: No fracture. Levoscoliosis is seen of the lumbar spine. Mild bilateral hip osteoarthritis. Grade 1 anterolisthesis of L3 on L4 and L4 on L5. Multilevel degenerative endplate sclerosis and spurring. Diffuse facet arthropathy. Severe narrowing of the L3-L4 and L4-L5 disc space. There is also severe narrowing of the L5-S1 disc space. Soft tissues: Overlying bowel gas pattern is normal. No suspicious soft tissue calcifications. Oblique images: No pars defects. IMPRESSION: Levoscoliosis Severe multilevel lumbar spondylosis and facet arthropathy Multilevel spondylolisthesis as above. Dictated by: Дмитрий Paez M.D. on 09/30/2019 at 14:35 Approved by: Дмитрий Paez M.D. on 09/30/2019 at 14:36
== END ==
PROVIDERS: PCP Family Medicine; Referring Provider Family Medicine; Visit Provider Physical Medicine & Rehabilitation
DX: M47.26 Other spondylosis with radiculopathy, lumbar region (principal); M47.27 Other spondylosis with radiculopathy, lumbosacral region; M41.86 Other forms of scoliosis, lumbar region; M43.16 Spondylolisthesis, lumbar region; M16.0 Bilateral primary osteoarthritis of hip; M86.9 Osteomyelitis, unspecified; Z96.659 Presence of unspecified artificial knee joint
CPT/HCPCS: 72110; 99214

== ENCOUNTER → 2019-12-02 09:59 | Outpatient (CLI) | payer MEDICARE, OTHER, SELFPAY ==
[2019-10-29 13:14] VITALS: BMI 28.2
--- NOTE | 2019-12-02 10:00 | DI.MRI.S_ITS ---
PROCEDURE: MR LUMBAR SPINE WO CON INDICATIONS: Scoliosis progressive low back pain TECHNIQUE: Noncontrast sagittal T1 spin echo and T2 fast echo, sagittal STIR, axial T1 and T2 fast spin echo through the lumbar spine. In cases with scoliosis, additional coronal T2 fast spin echo may be performed. COMPARISON: Outside Facility, RG, MRI L-SPINE W/O CONTRAST, 05/07/2017, 14:06. [facility], MR, L-SPINE WITHOUT CONTRAST, 12/16/2013, 13:24. [facility], CR, XR LUMBAR SPINE MIN 4V, 09/30/2019, 10:57. FINDINGS: Image quality: Excellent. Alignment and Curvature: 5 lumbar type vertebral bodies are present by plain film. There is moderate leftward curvature of the upper lumbar spine. There is mild grade 1 anterolisthesis of L3 on L4 and L4 on L5. Mild grade 1 retrolisthesis of L5 on S1. Bone Marrow: Marrow is of normal overall signal. No acute vertebral body compression fractures. Moderate reactive signal within the endplates adjacent to the L3-L4, L4-L5, and L5-S1 intervertebral discs. Spinal Cord: Conus medullaris terminates at the mid L2 level. Visualized cord demonstrates normal signal and size. Paraspinous Soft Tissues: No paravertebral masses. L1-L2: Mild disc height loss and desiccation. Mild diffuse disc bulge. Mild canal stenosis. Mild bilateral foraminal stenosis. No change. L2-L3: Mild disc height loss and desiccation. Mild diffuse disc bulge with superimposed broad-based left far lateral protrusion, increased from the prior examination. Mild facet and ligamentum flavum hypertrophy. Mild epidural lipomatosis. Mild canal stenosis is unchanged. There is increased, moderate left foraminal stenosis. No change in mild right foraminal stenosis. L3-L4: Severe disc height loss and desiccation. Moderate diffuse disc bulge with superimposed broad-based right paracentral protrusion and right far lateral broad-based protrusion. Mild facet and ligamentum flavum hypertrophy. Mild epidural lipomatosis. Increased, severe canal stenosis. Mild left and severe right foraminal stenosis, which is increased. There is new right L3 nerve root compression. L4-L5: Severe disc height loss and desiccation. Mild diffuse disc bulge with superimposed broad-based right posterolateral protrusion. Moderate bilateral facet and ligamentum flavum hypertrophy. Mild epidural lipomatosis. There is increased, severe canal stenosis. There is increased, moderate right and mild left foraminal stenosis. L5-S1: Moderate disc height loss and desiccation. Mild diffuse disc bulge. Mild facet and ligamentum flavum hypertrophy. Mild epidural lipomatosis. Mild canal stenosis. Mild right and moderate left foraminal stenosis. IMPRESSION: 1. Multilevel degenerative disc and facet disease, as well as ligamentum flavum hypertrophy and epidural lipomatosis. 2. Multilevel canal stenosis, worst at L3-L4 and L4-L5, where there are severe canal stenosis present. 3. Multilevel foraminal stenoses, worst on the right at L3-L4 where there is associated intraforaminal nerve root compression. Recommend correlation with clinical symptoms to ascertain relevance of this finding. Dictated by: Rex Corrigan M.D. on 12/02/2019 at 15:21 Approved by: Rex Corrigan M.D. on 12/02/2019 at 15:26
== END ==
PROVIDERS: PCP Family Medicine; Referring Provider Physical Medicine & Rehabilitation; Visit Provider Physical Medicine & Rehabilitation
DX: M54.5 Low back pain (principal); M51.16 Intervertebral disc disorders with radiculopathy, lumbar region; M48.061 Spinal stenosis, lumbar region without neurogenic claudication; M41.9 Scoliosis, unspecified; E88.2 Lipomatosis, not elsewhere classified
CPT/HCPCS: 72148

== ENCOUNTER → 2019-12-02 10:43 | Outpatient (CLI) | payer MEDICARE, OTHER, SELFPAY ==
[2019-10-29 13:14] VITALS: BMI 28.2
[2019-12-03 07:41] LABS: COVID19 Sendout Not Detected (Not Detect)
== END ==
PROVIDERS: PCP Family Medicine; Visit Provider Physician Assistant
DX: Z11.59 Encounter for screening for other viral diseases (principal)
CPT/HCPCS: 87635

== ENCOUNTER 2019-12-05 10:11 | Outpatient (CLI) | payer MEDICARE, OTHER, SELFPAY ==
[2019-10-29 13:14] VITALS: BMI 28.2
[2019-12-05] VITALS (9 sets, daily range): BP systolic 118–161; BP diastolic 63–89; PULSE 70–85; RESP 15–22; TEMP 36.2; O2SAT 94–99
--- NOTE | 2019-12-05 10:14 | DI.RAD.S_ITS ---
PROCEDURE: PAIN L/SI FACET INJ/BLK 1STL INDICATIONS: SPONDYLOSIS COMPARISON: None. FINDINGS: Fluoroscopic spot filming was performed to verify placement of spinal needles at the right L3-L4, L4-L5 and L5-S1 facet joint level(s), as labeled on the films. Appropriate location(s) of the needle tip(s) was confirmed by injection of iodinated contrast. IMPRESSION: Spinal needles placed at the right L3-L4, L4-L5 and L5-S1 facet joints. Dictated by: Lynda Clarke MD, PhD on 12/05/2019 at 14:43 Approved by: Lynda Clarke MD, PhD on 12/05/2019 at 14:44
[2019-12-05] MEDS: fentaNYL 100 MCG/2 ML INJ 50 MCG IV (11:30)
[2019-12-05] MEDS: MIDAZOLAM 5 MG/5 ML VIAL IV (11:32)
[2019-12-05] MEDS: LIDOCAINE 1% 20 ML 10 ML INJ (11:33)
[2019-12-05] MEDS: BUPIVACAINE 0.5% (PF) VIAL 2 ML INJ (11:33)
[2019-12-05] MEDS: BETAMETHASONE 30 MG/5 ML MDV 12 MG INJ (11:33)
[2019-12-05] MEDS: IOPAMIDOL 15 ML VIAL 3 ML INJ (11:33)
--- NOTE | 2019-12-05 11:40 | P.PCN_ITS ---
Date/Time/Diagnoses Date of procedure: 12/05/19 Time of procedure: 11:41 Pre-procedure diagnosis: 1. FACET ARTHROPATHY, 2. AXIAL LBP, 3. MULTILEVEL DDD Post-procedure diagnosis: same Procedure Notes Procedure: 1. FLUOROSCOPICALLY GUIDED CONTRAST CONTROLLED FACET JOINT INJECTIONS RIGHT L3/4, L4/5, L5/S1 Indications: Henry is referred by Dr. Mao for treatment of Axial LBP Physician: Freddy Cowart Total Fluoroscopy time (seconds): 5 Total sedation minutes: 9 Complications: none Procedure in detail & Post-procedure care: FINDINGS Multilevel Facet Arthropathy with Clinically significant axial LBP DESCRIPTION OF PROCEDURE Fluoroscopically guided, contrast-controlled right L3/4, L4/5, L5/S1 facet joint injections. Following review of allergy and review of potential side effects and complications, including, but not necessarily limited to, infection, allergic reaction, local tissue breakdown, stroke, temporary or permanent nerve injury, paralysis, and possible , the patient indicated that the patient understood and agreed to proceed. An informed consent document was signed by the patient, witnessed by a nurse, and placed in the patient's chart. Additionally, other treatment options including medications, modalities, and physical therapy were reviewed with the patient. After review of previous anaesthesic history and IV conscious sedation the patient was deemed safe to proceed with today?s procedure with IV conscious sedation as ASA class II designation. Safety time-out was performed to confirm patient ID, procedure to be performed and site of procedure. IV sedation was accomplished with a combination of 3mg of Versed and 50mcg of Fentanyl was administered by the RN after DO order, titrated to patient comfort during the course of the procedure while the patient remained responsive to all verbal commands. In the prone position, following sterile prep and drape of the lumbar region, the posterior aspect of the right L3/4, L4/5, L5/S1 facet joints were identified fluoroscopically. The skin was anesthetized via a 25-gauge 1.5-inch needle with 1% lidocaine solution into the corresponding facet joints. At this point, a 22- gauge 3.5-inch spinal needle was atraumatically introduced and advanced under fluoroscopic guidance into the corresponding facet joints. Following negative aspiration, injections of approximately 0.2-cc of Isovue 200 confirmed interarticular placement without vascular uptake. Radiological data, including multiple fluoroscopic views of the lumbosacral spine, reveal a spinal needle at the right L3/4, L4/5, L5/S1 facet joints. Subsequent views show flow of contrast material both superiorly and inferiorly within the joint space without vascular or intrathecal uptake. At this point, a total of 0.5cc including a mixture of 0.25cc Marcaine and 0.25cc betamethasone was injected without complication into each of the corresponding facet joints. The procedure tolerated the procedure well without signs or symptoms of complications prior to transfer to the recovery area continued monitoring without incident. The patient was then transferred to the recovery area where they were observed for an appropriate period of time after the injection. The patient reported a VAS score of 7 prior to the procedure and a post-procedure VAS of 0. POST OP INSTRUCTIONS The patient was provided a Pain Log to continue to record their response to the target-specific procedure prior to follow-up visit with their referring physician. Additionally, specific post-injection care instructions and a contact number to our office were provided if concerns arise regarding possible complications associated with the procedure are suspected.
--- NOTE | 2019-12-05 16:02 | PC.NURSE ---
All Sedation Medication administered by PRINCESS Stone. All other procedural meds administered by Dr. Cowart
== END 2019-12-05 12:05 | disposition home or self-care (01) ==
PROVIDERS: PCP Family Medicine; Referring Provider Physical Medicine & Rehabilitation; Visit Provider Physical Medicine & Rehabilitation
DX: M47.816 Spondylosis without myelopathy or radiculopathy, lumbar region (principal); M47.817 Spondylosis without myelopathy or radiculopathy, lumbosacral region; M54.5 Low back pain; M51.36 Other intervertebral disc degeneration, lumbar region; M51.37 Other intervertebral disc degeneration, lumbosacral region
CPT/HCPCS: 64493; 64494; 64495; J0702; J2250; J3010

== ENCOUNTER 2020-05-26 10:06 | Outpatient (CLI) | payer MEDICARE, OTHER, SELFPAY ==
[2019-10-29 13:14] VITALS: BMI 28.2
[2020-05-26] VITALS (7 sets, daily range): BP systolic 109–139; BP diastolic 45–76; PULSE 72–93; RESP 14–20; TEMP 36.8; O2SAT 94–100
--- NOTE | 2020-05-26 10:07 | DI.RAD.S_ITS ---
PROCEDURE: PAIN L/S TRANSFORAMINAL INJECT INDICATIONS: SPONDYLOSIS COMPARISON: None. FINDINGS: Fluoroscopic spot filming was performed to verify placement of spinal needles at the right L3-4 level(s), as labeled on the films. Appropriate location(s) of the needle tip(s) was confirmed by injection of iodinated contrast. IMPRESSION: Successful needle tip localization of the right-sided L3-L4 neural foramen for transforaminal epidural steroid injection. Dictated by: Gadiel Burton M.D. on 05/26/2020 at 11:38 Approved by: Gadiel Burton M.D. on 05/26/2020 at 11:38
[2020-05-26] MEDS: fentaNYL 100 MCG/2 ML INJ 50 MCG IV (10:45)
[2020-05-26] MEDS: MIDAZOLAM 5 MG/5 ML VIAL IV (10:45)
[2020-05-26] MEDS: BETAMETHASONE 30 MG/5 ML MDV 6 MG INJ (10:51)
[2020-05-26] MEDS: DEXAMETHASONE 10 MG/ML VIAL 20 MG INJ (10:51)
[2020-05-26] MEDS: BUPIVACAINE 0.25% (PF) VIAL 2 ML INJ (10:52)
[2020-05-26] MEDS: IOPAMIDOL 15 ML VIAL 3 ML INJ (10:52)
--- NOTE | 2020-05-26 11:05 | P.PCN_ITS ---
Date/Time/Diagnoses Date of procedure: 05/26/20 Time of procedure: 11:06 Pre-procedure diagnosis: 1. FORAMINAL STENOSIS WITH LE SYMPTOMS Post-procedure diagnosis: same Procedure Notes Procedure: 1. FLUOROSCOPICALLY GUIDED CONTRAST CONTROLLED TRANSFORAMINAL EPIDURAL STEROID INJECTION - RIGHT L3/4 TFESI Indications: Henry is referred by Dr. Mao for treatment of Foraminal Stenosis with right LE Symptoms Physician: Freddy Cowart Total Fluoroscopy time (seconds): 13 Total sedation minutes: 14 Complications: none Procedure in detail & Post-procedure care: FINDINGS Foraminal Nerve Root Compression secondary to disc disease and facet hypertrophy DESCRIPTION OF PROCEDURE Following review of allergy and review of potential side effects and complications, including, but not necessarily limited to, infection, allergic reaction, local tissue breakdown, stroke, temporary or permanent nerve injury, paralysis, and possible , the patient indicated that the patient understood and agreed to proceed. An informed consent document was signed by the patient, witnessed by a nurse, and placed in the patient's chart. Additionally, other treatment options including medications, modalities, and physical therapy were reviewed with the patient. After review of previous anaesthesic history and IV conscious sedation the patient was deemed safe to proceed with today?s procedure with IV conscious sedation as ASA class II designation. Safety time-out was performed to confirm patient ID, procedure to be performed and site of procedure. IV sedation was accomplished with a combination of 2mg of Versed and 50mcg of Fentanyl was administered by the RN after DO order, titrated to patient comfort during the course of the procedure while the patient remained responsive to all verbal c ommands In the prone position following sterile prep and drape of the lumbar region, the right L3/4 posterior neuroforamen was identified fluoroscopically. The skin was anesthetized via a 25-gauge 1.5-inch needle with 1% lidocaine solution. At this point, a 25-gauge 3.5-inch spinal needle was atraumatically introduced and advanced under fluoroscopic guidance through the posterior right L3/4 truong roforamen to approximately the anterior aspect of the canal. Depth was confirmed on lateral view. Following negative aspiration, injection of approximately 1.5 cc of Isovue 200 under live fluoroscopy in the AP view confirmed excellent flow along the nerve root, into the epidural space without vascular or intrathecal uptake observed Radiological data, including multiple fluoroscopic views of the lumbosacral spine, reveal a spinal needle at the right L3/4 posterior neuroforamen. Subsequent views show flow of contrast material flowing superiorly and inferiorly along the nerve root confirming epidural flow. Subsequently, a test dose of 1.5 cc of 1% lidocaine solution was administered and patient was observed for two minutes for signs or symptoms of complications, including abdominal pain, shortness of breath, bilateral upper or lower extremity weakness, nausea and vomiting, prior to steroid injection. At this point, a total of 3cc or 20mg of dexamethasone and 6mg of betamethasone was injected without incident. The patient tolerated the procedure well without signs or symptoms of complications prior to transfer to the recovery area continued monitoring without incident. The patient was then transferred to the recovery area where they were observed for an appropriate time after the injection. The patient reported a VAS score of 7 prior to the procedure and a post-procedure VAS of 0. POST OP INSTRUCTIONS The patient was provided a Pain Log to continue to record their response to the target-specific procedure prior to follow-up visit with their referring physician. Additionally, specific post-injection care instructions and a contact number to our office were provided if concerns arise regarding possible complications associated with the procedure are suspected.
== END 2020-05-26 10:20 | disposition home or self-care (01) ==
LOC: RAD 10:07
PROVIDERS: PCP Family Medicine; Referring Provider Physical Medicine & Rehabilitation; Visit Provider Physical Medicine & Rehabilitation
DX: M48.061 Spinal stenosis, lumbar region without neurogenic claudication (principal); M51.16 Intervertebral disc disorders with radiculopathy, lumbar region
CPT/HCPCS: 64483; 99152; J0702; J1100; J2250; J3010

== ENCOUNTER 2020-11-24 13:00 | Outpatient (CLI) | payer MEDICARE, OTHER, SELFPAY ==
[2019-10-29 13:14] VITALS: BMI 28.2
[2020-11-24] VITALS (9 sets, daily range): BP systolic 96–141; BP diastolic 71–85; PULSE 67–83; RESP 10–20; TEMP 36.4; O2SAT 93–98
--- NOTE | 2020-11-24 13:01 | DI.RAD.S_ITS ---
PROCEDURE: PAIN L/S FACET INJ/BLK 1ST LOLIS COMPARISON: [facility], XA, PAIN L/S TRANSFORAMINAL INJECT, 05/26/2020, 10:50. [facility], XA, PAIN L/SI FACET INJ/BLK 1STL, 12/05/2019, 11:32. INDICATIONS: SPONDYLOSIS FINDINGS: Fluoroscopic spot filming was performed to verify placement of spinal needles on the right at the L3, L4, L5, and S1 levels, as labeled on the films. Appropriate location of the needle tips was confirmed by injection of iodinated contrast. IMPRESSION: Intraprocedural examination within normal limits. Dictated by: Ignacio Recio M.D. on 11/24/2020 at 13:46 Approved by: Ignacio Recio M.D. on 11/24/2020 at 13:47
[2020-11-24] MEDS: fentaNYL 100 MCG/2 ML INJ 50 MCG IV (13:58)
[2020-11-24] MEDS: MIDAZOLAM 5 MG/5 ML VIAL IV (13:58)
[2020-11-24] MEDS: LIDOCAINE 1% 20 ML 10 ML INJ (13:59)
[2020-11-24] MEDS: BUPIVACAINE 0.5% (PF) VIAL 5 ML INJ (14:00)
[2020-11-24] MEDS: IOPAMIDOL 15 ML VIAL 3 ML INJ (14:00)
--- NOTE | 2020-11-24 14:13 | PM.PROC.IR.1 ---
Date/Time/Diagnoses Date of procedure: 11/24/20 Time of procedure: 14:13 Pre-procedure diagnosis: 1. FACET ARTHROPATHY Post-procedure diagnosis: same Procedure Notes Procedure: 1. BILATERAL- L3, L4, L5 and S1 DIAGNOSTIC MB BLOCKS with LA Anesthetic Indications: Henry is referred by Dr. Mao for treatment of Bilateral Axial LBP. Physician: Freddy Cowart Total Fluoroscopy time (seconds): 14 Total sedation minutes: 12 Complications: none Procedure in detail & Post-procedure care: DESCRIPTION OF PROCEDURE Fluoroscopically guided, contrast-controlled bilateral L3,L4, L5 and S1 medial branch blocks with 0.5cc of 0.5% Marcaine. Following review of allergy and review of potential side effects and complications, including, but not necessarily limited to, infection, allergic reaction, local tissue breakdown, nerve injury, paralysis, stroke and possible , the patient indicated that the patient understood and agreed to proceed. An informed consent document was signed by the patient, witnessed by a nurse, and placed in the patient's chart. After review of previous anaesthesic history and IV conscious sedation the patient was deemed safe to proceed with today's procedure with IV conscious sedation as ASA class II designation. Safety time-out was performed to confirm patient ID, procedure to be performed and site of procedure. IV sedation was accomplished with a combination of 3mg of Versed and 50mcg of Fentanyl was administered by the RN after DO order, titrated to patient comfort during the course of the procedure while the patient remained responsive to all verbal commands In the prone position, following sterile prep and drape of the lumbar region, the right L3 L4, L5 and S1 anatomical location of the medial branch of the dorsal ramus was identified fluoroscopically. Subsequently an anesthetic skin wheal using 1% lidocaine solution was initiated at each of the anatomical spots. Subsequently then a 22-gauge 3.5-inch spinal needle was atraumatically introduced and advanced under fluoroscopic guidance at each of the corresponding sites at the right L3, L4, L5 and S1 MB. After negative aspiration, 0.2cc of Isovue 200 was injected, confirming placement without vascular or intrathecal uptake. Subsequently then 0.5cc of 0.5% Marcaine solution was injected at each of the corresponding sites at the right L3, L4, L5 and S1 medial branch locations. The identical procedure was replicated on the left. The patient tolerated the procedure well without signs or symptoms of complications prior to transfer to the recovery area continued monitoring without incident. Post-procedure, the patient was monitored initiating provocative activities to measure the amount of relief from block of the facetogenic pain. The patient reported a VAS of 7 prior to the procedure and a post-procedure VAS of 1. It has been a pleasure to assist in the diagnostic and therapeutic care of your patient. POST OP INSTRUCTIONS The patient was provided with a Pain Log to complete over the next several hours and subsequent days prior to the patient's follow up with the ordering physician. If the patient has wire mill rover relief to the solution applied, then they may be a candidate for medial branch rhizotomy. The patient is aware, was provided, once again, with a Pain Log and will follow up with the referring physician for review and clinical correlation
== END 2020-11-24 14:38 | disposition home or self-care (01) ==
LOC: RAD 13:01
PROVIDERS: PCP Family Medicine; Referring Provider Physical Medicine & Rehabilitation; Visit Provider Physical Medicine & Rehabilitation
DX: M47.816 Spondylosis without myelopathy or radiculopathy, lumbar region (principal); M47.817 Spondylosis without myelopathy or radiculopathy, lumbosacral region; M54.5 Low back pain
CPT/HCPCS: 64493; 64494; 64495; 99152

== ENCOUNTER → 2022-09-22 14:46 | Outpatient (CLI) | payer MEDICARE, OTHER, SELFPAY ==
[2022-09-19 12:41] VITALS: BMI 28.2
--- NOTE | 2022-09-22 14:47 | DI.MRI.S_ITS ---
PROCEDURE: MR SHOULDER RT WO CON INDICATIONS: Pain in right shoulder TECHNIQUE: Noncontrast oblique coronal T2 fast spin echo with fat saturation, oblique sagittal T1 spin echo and T2 fast spin echo with fat saturation, axial T1 spin echo and T2 fast spin echo with fat saturation through the shoulder. COMPARISON: [facility], MR, SHOULDER WITH CONTRAST, 05/06/2013, 12:06. [facility], MR, SHOULDER WITHOUT CONTRAST, 12/14/2012, 13:35. FINDINGS: Image quality: Excellent. Rotator cuff: Postsurgical changes are again seen from rotator cuff tendon repair. There is thickening and heterogeneity of the distal supraspinatus tendon with suspected low-grade partial bursal surface tearing. No full-thickness rotator cuff tendon tear is seen. The infraspinatus and teres minor tendons appear to be intact. There is moderate grade partial intrasubstance tearing of the subscapularis tendon at the superior insertion. There is mild atrophy of the supraspinatus muscle without significant fatty infiltration. The remaining rotator cuff muscles are normal in bulk. Bones and bursae: No acute trabecular bone injury or fracture. Metal artifact is seen related to the surgical anchor in the greater tuberosity. Full-thickness cartilage loss at the superomedial humeral head and within the posterior glenoid with subchondral cystic changes and marginal osteophyte formation. A small glenohumeral effusion is present with moderate synovial hypertrophy. Moderate degenerative changes are seen at the acromioclavicular joint. There is a small amount of fluid in the subacromial/subdeltoid bursa with mild bursal thickening that may indicate bursitis. Capsule and soft tissues: There is mild diffuse labral degeneration. Flattening of the proximal biceps long head tendon is suspicious for partial intrasubstance tearing. The tendon is perched along the medial aspect of the bicipital groove. The glenohumeral ligaments appear to be intact. IMPRESSION: 1. Postsurgical changes from rotator cuff tendon repair. There is thickening and heterogeneity of the distal supraspinatus tendon with superimposed low-grade bursal sided tearing. No full-thickness rotator cuff tendon tear is seen. 2. Moderate grade partial intrasubstance tearing of the subscapularis tendon at the superior insertion. 3. Partial intrasubstance tearing of the proximal biceps long head tendon with perching along the medial aspect of the bicipital groove. 4. Full-thickness cartilage loss in the glenohumeral joint with subchondral cystic changes and marginal osteophyte formation. Mild diffuse labral degeneration. 5. Small glenohumeral effusion with moderate synovial hypertrophy. 6. Moderate acromioclavicular joint osteoarthrosis. 7. Small subacromial/subdeltoid bursal effusion or mild bursitis. Approved by: Basil Gifford M.D. on 09/23/2022 at 9:41
== END ==
PROVIDERS: PCP Family Medicine; Referring Provider Family Medicine; Visit Provider Family Medicine
DX: M75.111 Incomplete rotator cuff tear or rupture of right shoulder, not specified as traumatic (principal); S46.111A Strain of muscle, fascia and tendon of long head of biceps, right arm, initial encounter; M25.511 Pain in right shoulder; M19.011 Primary osteoarthritis, right shoulder; M75.51 Bursitis of right shoulder
CPT/HCPCS: 73221

== ENCOUNTER → 2024-05-13 07:33 | Outpatient (CLI) | payer MEDICARE, OTHER, SELFPAY ==
[2024-04-18 11:22] VITALS: BMI 28.2
--- NOTE | 2024-05-13 07:35 | DI.MRI.S_ITS ---
PROCEDURE: MR LUMBAR SPINE WO CON INDICATIONS: ACUTE ON CHRONIC RT SIDED LBP/URINARY INCONTINENCE TECHNIQUE: Noncontrast sagittal T1 spin echo and T2 fast echo, sagittal STIR, and T2 fast spin echo through the lumbar spine. In cases with scoliosis, additional coronal T2 fast spin echo may be performed. COMPARISON: [facility], MR, MR LUMBAR SPINE WO CON, 12/02/2019, 10:08. FINDINGS: Image quality: Excellent. Alignment and Curvature: Leftward scoliotic curvature is present with apex at L3-4. There is trace anterolisthesis of L3 on L4, L4 on L5 and trace retrolisthesis of L5 on S1. Bone Marrow: Marrow is of normal overall signal. No acute vertebral body compression fractures. Spinal Cord: Conus medullaris terminates at the L1-2 level. Visualized cord demonstrates normal signal and size. Paraspinous Soft Tissues: No paravertebral masses. Discs: Moderate to severe desiccation from L3-4 through L5-S1. T12-L1: No disc bulge, spinal stenosis or foraminal narrowing. L1-L2: Minimal disc bulge without spinal stenosis. Mild- bilateral foraminal narrowing, left greater than right. Facet and ligamentum flavum hypertrophy are present. No interval change. L2-L3: Mild disc bulge with mild spinal stenosis. [id number] left greater than right foraminal narrowing. Facet and ligamentum flavum hypertrophy as well as epidural lipomatosis are present. No interval change. L3-L4: Mild disc bulge with severe spinal stenosis and canal compression. Severe right foraminal narrowing, moderate left with compression of the exiting left L3 nerve roots. Facet and ligamentum flavum hypertrophy are present. No interval change. L4-L5: Mild disc bulge with severe spinal stenosis. Severe right and moderate left foraminal narrowing with facet and ligamentum flavum hypertrophy, slightly progressive. L5-S1: Mild disc bulge without spinal stenosis. Moderate left, mild right foraminal narrowing with facet and ligamentum flavum hypertrophy. No interval change. IMPRESSION: Multilevel degenerative changes with areas of interval progression as above. Multilevel prominent foraminal narrowing probably secondary to facet/ligamentum flavum arthropathy. Dictated by: Tri Pereira M.D. on 05/13/2024 at 15:29 Approved by: Tri Pereira M.D. on 05/13/2024 at 15:39
== END ==
PROVIDERS: PCP Student in an Organized Health Care Education/Training Program; Referring Provider Physical Medicine & Rehabilitation; Visit Provider Physical Medicine & Rehabilitation
DX: M47.816 Spondylosis without myelopathy or radiculopathy, lumbar region (principal); M47.817 Spondylosis without myelopathy or radiculopathy, lumbosacral region; M48.061 Spinal stenosis, lumbar region without neurogenic claudication; M48.07 Spinal stenosis, lumbosacral region; M54.50 Low back pain, unspecified; G89.29 Other chronic pain; R32 Unspecified urinary incontinence
CPT/HCPCS: 72148

== ENCOUNTER 2024-07-02 07:36 | Outpatient (CLI) | payer MEDICARE, OTHER, SELFPAY ==
[2024-04-18 11:22] VITALS: BMI 28.2
[2024-07-02] VITALS (9 sets, daily range): BP systolic 107–130; BP diastolic 58–69; PULSE 74–84; RESP 14–16; TEMP 36.2; O2SAT 96–100
[2024-07-02] MEDS: MIDAZOLAM 2 MG/2 ML VIAL IV (08:33)
[2024-07-02] MEDS: iopamidoL 15 ML VIAL 3 ML INJ (08:42)
[2024-07-02] MEDS: BUPIVACAINE 0.5% (PF) 10 ML VIAL 2 ML INJ (08:42)
--- NOTE | 2024-07-02 08:53 | P.PCN_ITS ---
Date/Time/Diagnoses Date of procedure: 07/02/24 Time of procedure: 08:53 Pre-procedure diagnosis: FACET ARTHROPATHY Post-procedure diagnosis: same Procedure Notes Procedure: RIGHT L3, L4 AND L5 DIAGNOSTIC MB BLOCKS Indications: Henry is referred by Dr. Boucher for treatment of Right Axial LBP. Physician: Freddy Cowart Total Fluoroscopy time (seconds): 6 Total sedation minutes: 14 Complications: none Procedure in detail & Post-procedure care: DESCRIPTION OF PROCEDURE Fluoroscopically guided, contrast-controlled right L3, L4 AND L5 medial branch blocks with 0.5cc of 0.5% Marcaine. Following review of allergy and review of potential side effects and complications, including, but not necessarily limited to, infection, allergic reaction, local tissue breakdown, nerve injury, paralysis, stroke and possible , the patient indicated that the patient understood and agreed to proceed. An informed consent document was signed by the patient, witnessed by a nurse, and placed in the patient's chart. After review of previous anaesthesic history and IV conscious sedation the patient was deemed safe to proceed with today's procedure with IV conscious sedation as ASA class II designation. Safety time-out was performed to confirm patient ID, procedure to be performed and site of procedure. IV sedation was accomplished with a combination of 2mg of Versed was administered by the RN after DO order, titrated to patient comfort during the course of the procedure while the patient remained responsive to all verbal commands In the prone position, following sterile prep and drape of the lumbar region, the right L3, L4 AND L5 anatomical location of the medial branch of the dorsal ramus was identified fluoroscopically. Subsequently an anesthetic skin wheal using 1% lidocaine solution was initiated at each of the anatomical spots. Subsequently then a 22-gauge 3.5-inch spinal needle was atraumatically introduced and advanced under fluoroscopic guidance at each of the corresponding sites at the right L3, L4 and L5 MB. After negative aspiration, 0.2cc of Isovue 200 was injected, confirming placement without vascular or intrathecal uptake. Subsequently then 0.5cc of 0.5% Marcaine solution was injected at each of the corresponding sites at the right L3, L4 and L5 medial branch locations. The patient tolerated the procedure well without signs or symptoms of complications. The patient tolerated the procedure well without signs or symptoms of complications prior to transfer to the recovery area continued monitoring without incident. Post-procedure, the patient was monitored initiating provocative activities to measure the amount of relief from block of the facetogenic pain. The patient reported a VAS of 7 prior to the procedure and a post-procedure VAS of 1. It has been a pleasure to assist in the diagnostic and therapeutic care of your patient. POST OP INSTRUCTIONS The patient was provided with a Pain Log to complete over the next several hours and subsequent days prior to the patient's follow up with the ordering physician. If the patient has geographic information scientist relief to the solution applied, then they may be a candidate for medial branch rhizotomy. The patient is aware, was provided, once again, with a Pain Log and will follow up with the referring physician for review and clinical correlation
--- NOTE | 2024-07-02 13:28 | PC.NURSE ---
Patient is able to stand upright but unable to bear any weight with walking or stepping. Both legs buckle immediately when trying to ambulate. Dr. Cowart aware and ok for patient to discharge as patient has a long ferry ride and trip home. Patient and family instructed to stay in vehicle and to have spouse walk beside patient when getting out of vehicle once home.
== END 2024-07-02 13:05 | disposition home or self-care (01) ==
LOC: RAD 07:37
PROVIDERS: PCP Student in an Organized Health Care Education/Training Program; Referring Provider Physical Medicine & Rehabilitation; Visit Provider Physical Medicine & Rehabilitation
DX: M47.816 Spondylosis without myelopathy or radiculopathy, lumbar region (principal)
CPT/HCPCS: 64493; 64494; 99152; J2250

== ENCOUNTER 2024-08-08 12:57 | Outpatient (CLI) | payer MEDICARE, OTHER, SELFPAY ==
[2024-08-05 10:47] VITALS: BMI 28.2
[2024-08-08] VITALS (7 sets, daily range): BP systolic 127–141; BP diastolic 67–114; PULSE 72–83; RESP 14–22; TEMP 36.2; O2SAT 96–99
[2024-08-08] MEDS: MIDAZOLAM 2 MG/2 ML VIAL IV (14:45)
[2024-08-08] MEDS: iopamidoL 15 ML VIAL 3 ML INJ (14:48)
[2024-08-08] MEDS: LIDOCAINE 2% INJ MDV 20ML 5 ML INJ (14:49)
--- NOTE | 2024-08-08 14:59 | PM.PROC.IR.1 ---
Date/Time/Diagnoses Date of procedure: 08/08/24 Time of procedure: 14:59 Pre-procedure diagnosis: 1. FACET ARTHROPATHY Post-procedure diagnosis: same Procedure Notes Procedure: 1. RIGHT L3, L4 AND L5 DIAGNOSTIC MB BLOCKS Indications: Henry is referred by Dr. Pang for treatment of Right Axial LBP. Physician: Freddy Cowart Total Fluoroscopy time (seconds): 6 Total sedation minutes: 10 Complications: none Procedure in detail & Post-procedure care: DESCRIPTION OF PROCEDURE Fluoroscopically guided, contrast-controlled right L3, L4 and L5 medial branch blocks with 0.5cc of 2% Lidocaine. Following review of allergy and review of potential side effects and complications, including, but not necessarily limited to, infection, allergic reaction, local tissue breakdown, nerve injury, paralysis, stroke and possible , the patient indicated that the patient understood and agreed to proceed. An informed consent document was signed by the patient, witnessed by a nurse, and placed in the patient's chart. After review of previous anaesthesic history and IV conscious sedation the patient was deemed safe to proceed with today's procedure with IV conscious sedation as ASA class II designation. Safety time-out was performed to confirm patient ID, procedure to be performed and site of procedure. IV sedation was accomplished with a combination of 2mg of Versed was administered by the RN after DO order, titrated to patient comfort during the course of the procedure while the patient remained responsive to all verbal commands In the prone position, following sterile prep and drape of the lumbar region, the right L3, L4 and L5 anatomical location of the medial branch of the dorsal ramus was identified fluoroscopically. Subsequently an anesthetic skin wheal using 1% lidocaine solution was initiated at each of the anatomical spots. Subsequently then a 22-gauge 3.5-inch spinal needle was atraumatically introduced and advanced under fluoroscopic guidance at each of the corresponding sites at the right L3, L4 and L5 MB. After negative aspiration, 0.2cc of Isovue 200 was injected, confirming placement without vascular or intrathecal uptake. Subsequently then 0.5cc of 2% Lidocaine solution was injected at each of the corresponding sites at the right L3, L4 and L5 medial branch locations. The patient tolerated the procedure well without signs or symptoms of complications. The patient tolerated the procedure well without signs or symptoms of complications prior to transfer to the recovery area continued monitoring without incident. Post-procedure, the patient was monitored initiating provocative activities to measure the amount of relief from block of the facetogenic pain. The patient reported a VAS of 7 prior to the procedure and a post-procedure VAS of 1. It has been a pleasure to assist in the diagnostic and therapeutic care of your patient. POST OP INSTRUCTIONS The patient was provided with a Pain Log to complete over the next several hours and subsequent days prior to the patient's follow up with the ordering physician. If the patient has procurement specialist relief to the solution applied, then they may be a candidate for medial branch rhizotomy. The patient is aware, was provided, once again, with a Pain Log and will follow up with the referring physician for review and clinical correlation
== END 2024-08-08 15:20 | disposition home or self-care (01) ==
LOC: RAD 12:58
PROVIDERS: PCP Student in an Organized Health Care Education/Training Program; Referring Provider Physical Medicine & Rehabilitation; Visit Provider Physical Medicine & Rehabilitation
DX: M47.816 Spondylosis without myelopathy or radiculopathy, lumbar region (principal)
CPT/HCPCS: 64493; 64494; 99152; J2250

== ENCOUNTER → 2024-08-16 08:48 | Outpatient (CLI) | payer MEDICARE, OTHER, SELFPAY ==
[2024-08-05 10:47] VITALS: BMI 28.2
[2024-08-16 10:17] LABS: Cancer Antigen 125 < 5.5 U/mL (0-35)
[2024-08-19 08:36] LABS: Human Epididymis Prot 4 60.9 pmol/L (0.0-96.9)
== END ==
PROVIDERS: PCP Student in an Organized Health Care Education/Training Program; Referring Provider Obstetrics & Gynecology; Visit Provider Obstetrics & Gynecology
DX: N83.201 Unspecified ovarian cyst, right side (principal); N83.202 Unspecified ovarian cyst, left side
CPT/HCPCS: 36415; 86304; 86305